=== PATIENT | female | born 1960 | race Caucasian/White ===

== ENCOUNTER 2017-05-10 20:24 | Emergency (ER) | payer OTHER ==
[~2017-05-10] VITALS: Ht 165.1 cm; Wt 136.0 kg
[~2017-05-10 20:24] MED LIST: BUPR150T3 PO; SYN
[2017-05-10 20:27] VITALS: BP 146/87; PULSE 88; RESP 16; TEMP 99.2; O2SAT 97
[2017-05-10] MEDS ORDERED: SODIUM CHLOR 0.9% 1000 ML INJ 1,000 ML IV SCH (21:12)
[2017-05-10] MEDS ORDERED: MORPHINE SULFATE 4 MG/ML INJ IV PUSH ONE (21:15)
[2017-05-10] MEDS ORDERED: ONDANSETRON HCL 4 MG/2 ML VIAL IVP ONE (21:15)
--- NOTE | 2017-05-10 21:15 | PD ---
HPI Chief Complaint: Abdominal Pain Time Seen by Provider: 21:05 Travel History International Travel<30 days: No Contact w/Intl Traveler<30days: No Traveled to known affect area: No History of Present Illness HPI 56-year-old female presents for evaluation of abdominal pain. Symptoms started yesterday. She describes it as a sharp pain in the left periumbilical/left lower quadrant of the abdomen which is the most part constant, worse with palpation and somewhat relieved when she is lying very still. She endorses some nausea. Denies vomiting, diarrhea or constipation, dysuria, hematuria, flank pain, fevers or chills, chest pain or shortness of breath. She has never had this sort of pain before. She reports a history of tubal ligation, denies any other abdominal surgeries. Denies history of diverticulosis. She has no other complaints at this time. PFSH Past Medical History Asthma: Yes Autoimmune Disease: Yes (THYROID) Depression: Yes Thyroid Disease: Yes Menopausal: No : 4 Para: 4 Miscarriage: 0 : 0 Tubal Ligation: Yes Past Surgical History Gynecologic Surgery: Yes (TUBAL LIGATION) Social History Alcohol Use: Yes (OCCASIONAL) Tobacco Use: No Substance Use: No Allergies-Medications (Allergen,Severity, Reaction): Coded Allergies: No Known Allergies (Verified , 05/10/17) Reported Meds & Prescriptions Reported Meds & Active Scripts Active Phenergan (Promethazine HCl) 25 Mg Tablet 25 Mg PO Q6H PRN Flagyl (Metronidazole) 500 Mg Tab 500 Mg PO TID 10 Days Cipro (Ciprofloxacin HCl) 500 Mg Tab 500 Mg PO BID 10 Days Review of Systems Except as stated in HPI: all other systems reviewed are Neg Physical Exam Narrative GENERAL: Well-developed well-nourished female in no acute distress SKIN: Warm and dry. HEAD: Atraumatic. Normocephalic. EYES: Pupils equal and round. No scleral icterus. No injection or drainage. ENT: No nasal bleeding or discharge. Mucous membranes pink and moist. NECK: Trachea midline. No JVD. CARDIOVASCULAR: Regular rate and rhythm. No murmur appreciated. RESPIRATORY: No accessory muscle use. Clear to auscultation. Breath sounds equal bilaterally. GASTROINTESTINAL: Abdomen soft, tender to palpation left periumbilical/left lower quadrant without guarding. There is no left upper quadrant or right upper quadrant tenderness. There is no right lower quadrant tenderness. There is no distention. MUSCULOSKELETAL: No obvious deformities. No edema. NEUROLOGICAL: Awake and alert. No obvious cranial nerve deficits. Motor grossly within normal limits. Normal speech. PSYCHIATRIC: Appropriate mood and affect; insight and judgment normal. Data Data Last Documented VS Vital Signs Date Time Temp Pulse Resp B/P Pulse Ox O2 Delivery O2 Flow Rate FiO2 05/10/17 20:27 99.2 88 16 146/87 97 Orders Complete Blood Count With Diff (05/10/17 21:12) Comprehensive Metabolic Panel (05/10/17 21:12) Lipase (05/10/17 21:12) Urinalysis - C+S If Indicated (05/10/17 21:12) Ct Abd/Pel W Iv Contrast(Rout) (05/10/17 21:12) Iv Access Insert/Monitor (05/10/17 21:12) Morphine Inj (Morphine Inj) (05/10/17 21:15) Ondansetron Inj (Zofran Inj) (05/10/17 21:15) Sodium Chlor 0.9% 1000 Ml Inj (Ns 1000 M (05/10/17 21:12) Iohexol 350 Inj (Omnipaque 350 Inj) (05/10/17 22:41) Diphenhydramine Inj (Benadryl Inj) (05/10/17 23:00) Methylprednisolone So Succ Inj (Solumedr (05/10/17 23:00) Ciprofloxacin 400 Mg Premix (Cipro 400 M (05/10/17 23:00) Metronidazole 500 Mg Inj (Flagyl 500 Mg (05/10/17 23:00) Labs Laboratory Tests Test 05/10/17 05/10/17 21:45 22:10 White Blood Count 11.4 TH/MM3 Red Blood Count 4.34 MIL/MM3 Hemoglobin 12.4 GM/DL Hematocrit 37.0 % Mean Corpuscular Volume 85.4 FL Mean Corpuscular Hemoglobin 28.5 PG Mean Corpuscular Hemoglobin 33.4 % Concent Red Cell Distribution Width 15.6 % Platelet Count 270 TH/MM3 Mean Platelet Volume 7.1 FL Neutrophils (%) (Auto) 58.2 % Lymphocytes (%) (Auto) 27.7 % Monocytes (%) (Auto) 10.7 % Eosinophils (%) (Auto) 2.9 % Basophils (%) (Auto) 0.5 % Neutrophils # (Auto) 6.6 TH/MM3 Lymphocytes # (Auto) 3.1 TH/MM3 Monocytes # (Auto) 1.2 TH/MM3 Eosinophils # (Auto) 0.3 TH/MM3 Basophils # (Auto) 0.1 TH/MM3 CBC Comment DIFF FINAL Differential Comment Sodium Level 138 MEQ/L Potassium Level 3.6 MEQ/L Chloride Level 102 MEQ/L Carbon Dioxide Level 26.7 MEQ/L Anion Gap 9 MEQ/L Blood Urea Nitrogen 13 MG/DL Creatinine 0.97 MG/DL Estimat Glomerular Filtration 60 ML/MIN Rate Random Glucose 87 MG/DL Calcium Level 8.5 MG/DL Total Bilirubin 0.4 MG/DL Aspartate Amino Transf 23 U/L (AST/SGOT) Alanine Aminotransferase 27 U/L (ALT/SGPT) Alkaline Phosphatase 91 U/L Total Protein 7.5 GM/DL Albumin 3.2 GM/DL Lipase 102 U/L Urine Color LIGHT-YELLOW Urine Turbidity CLEAR Urine pH 6.5 Urine Specific [place] 1.005 Urine Protein NEG mg/dL Urine Glucose (UA) NEG mg/dL Urine Ketones NEG mg/dL Urine Occult Blood SMALL Urine Nitrite NEG Urine Bilirubin NEG Urine Urobilinogen LESS THAN 2.0 MG/DL Urine Leukocyte Esterase NEG Urine RBC 1 /hpf Urine WBC LESS THAN 1 /hpf Urine Squamous Epithelial <1 /hpf Cells Urine Bacteria RARE /hpf Microscopic Urinalysis Comment CULT NOT INDICATED MDM Medical Decision Making Medical Screen Exam Complete: Yes Emergency Medical Condition: Yes Medical Record Reviewed: Yes Differential Diagnosis Diverticulitis, obstruction, pyelonephritis, mesenteric ischemia Narrative Course 56-year-old female here with 2 days of left-sided lower abdominal pain. Plan is for basic lab work, CT of the abdomen, she'll be given IV fluids, Zofran and morphine. Laboratory imaging studies have been reviewed. CT reveals uncomplicated diverticulitis. The patient will be treated with IV Cipro and Flagyl here, discharged with oral Cipro and Flagyl. Discussed signs and symptoms don't warrant return to the emergency room. Shortly after returning from CT the patient also itching in the axilla bilaterally, no rash. She was given some IV Benadryl and Solu-Medrol and monitored. Diagnosis Primary Impression: Diverticulitis Qualified Code: K57.32 - Diverticulitis of large intestine without perforation or abscess without bleeding Additional Instructions: Medication as prescribed. Follow-up with primary care physician in one week. Return for any new or worsening symptoms. Med/Other Pt SpecificInfo: Prescription(s) given Scripts Promethazine (Phenergan)25 Mg Dliesc73 Mg PO Q6H PRN (NAUSEA OR VOMITING) #20 TAB Ref 0 Prov:Areli Mejia MD 05/10/17 Metronidazole (Flagyl)500 Mg Uyp855 Mg PO TID 10 Days Ref 0 Prov:Areli Mejia MD 05/10/17 Ciprofloxacin (Cipro)500 Mg Tpd118 Mg PO BID 10 Days Ref 0 Prov:Areli Mejia MD 05/10/17 Disposition: 01 DISCHARGE HOME Condition: Stable Delroy Zuleta May 10, 2017 21:15
[2017-05-10 22:05] LABS: AUTOMATED NEUTROPHIL # 6.6 TH/MM3 (1.8-7.7); BASOPHIL # 0.1 TH/MM3 (0-0.2); BASOPHIL % 0.5 % (0.0-2.0); EOSINOPHIL # 0.3 TH/MM3 (0-0.4); EOSINOPHIL % 2.9 % (0.0-4.0); HEMO FLAGS DIFF FINAL; LYMPH % 27.7 % (9.0-44.0); LYMPHOCYTE # 3.1 TH/MM3 (1.0-4.8); MEAN CELL VOLUME 85.4 FL (80.0-100.0); MEAN CORPUSCULAR HEMOGLOBIN 28.5 PG (27.0-34.0); MEAN CORPUSCULAR HGB CONC 33.4 % (32.0-36.0); MONO % 10.7 % (0.0-8.0); NEUT % 58.2 % (16.0-70.0); PLATELET COUNT 270 TH/MM3 (150-450); RED BLOOD COUNT 4.34 MIL/MM3 (4.00-5.30); RED CELL DISTRIBUTION WIDTH 15.6 % (11.6-17.2); WHITE BLOOD COUNT 11.4 TH/MM3 (4.0-11.0)
[2017-05-10 22:20] LABS: ANION GAP 9 MEQ/L (5-15); AST (GOT) 23 U/L (15-37); BICARBONATE 26.7 MEQ/L (21.0-32.0); BLOOD UREA NITROGEN 13 MG/DL (7-18); CHLORIDE 102 MEQ/L (98-107); GLOMERULAR FILTRATION RATE 60 ML/MIN (>89); POTASSIUM 3.6 MEQ/L (3.5-5.1); SODIUM (NA) 138 MEQ/L (136-145)
[2017-05-10 22:21] LABS: ALT (GPT) 27 U/L (10-53)
[2017-05-10 22:23] LABS: ALKALINE PHOSPHATASE 91 U/L (45-117); TOTAL BILIRUBIN ADULT 0.4 MG/DL (0.2-1.0)
[2017-05-10 22:39] LABS: BACTERIA, URINE RARE /hpf; BLOOD, URINE SMALL (NEG); COMMENT (UR) CULT NOT INDICATED; CULTURE IF INDICATED CULT NOT INDICATED; GLUCOSE,URINE NEG (NEG); KETONE, URINE NEG (NEG); NITRITE,URINE NEG (NEG); PH, URINE 6.5 (5.0-8.5); SQUAMOUS EPITHELIAL CELL URINE <1 /hpf (0-5); URINE COLOR LIGHT-YELLOW (YELLW/STRAW)
[2017-05-10] MEDS ORDERED: IOHEXOL 350 MG/ML 10 ML VIAL (for RAD DIAG) IV ONE (22:41)
--- NOTE | 2017-05-10 22:56 | RADRPT ---
EXAM DATE/TIME: 05/10/2017 22:40 [facility] COMPARISON: No previous studies available for comparison. INDICATIONS : Periumbilical and left lower quadrant pain. IV CONTRAST: 95 cc Omnipaque 350 (iohexol) IV ORAL CONTRAST: No oral contrast ingested. RADIATION DOSE: 29.02 CTDIvol (mGy) ; Patient body habitus MEDICAL HISTORY : Thyroid disease. SURGICAL HISTORY : Tubal ligation. ENCOUNTER: Initial ACUITY: 1 day PAIN SCALE: 5/10 LOCATION: Left lower quadrant TECHNIQUE: Volumetric scanning of the abdomen and pelvis was performed. Using automated exposure control and ad justment of the mA and/or kV according to patient size, radiation dose was kept as low as reasonably achievable to obtain optimal diagnostic quality images. DICOM format image data is available electro nically for review and comparison. FINDINGS: There is a segment of mural thickening of the distal left colon with pericolonic inflammatory changes and multiple diverticula characteristic of diverticulitis. No abscess, obstruction, free fluid or fr ee air. Lung bases clear except for dependent atelectasis. No acute findings in the liver, spleen, adrenals, kidneys or pancreas. No calcified gallstones or biliary ductal dilatation. There is mild constipation . No acute bony abnormalities. CONCLUSION: 1. Acute diverticulitis of the distal left colon without abscess, obstruction, free fluid or free air . Mild constipation. Rene Frances MD on May 10, 2017 at 22:51 Board Certified Radiologist. This report was verified electronically.
[2017-05-10] MEDS ORDERED: diphenhydrAMINE HCL 50 MG/ML VIAL IV PUSH ONE (23:00)
[2017-05-10] MEDS ORDERED: metroNIDAZOLE 500 MG INJ 100 ML IV ONE (23:00)
[2017-05-10] MEDS ORDERED: METR-1 PO (23:00)
[2017-05-10] MEDS ORDERED: CIPR-9 PO (23:00)
[2017-05-10] MEDS ORDERED: CIPROFLOXACIN 400 MG PREMIX 200 ML IV ONE (23:00)
[2017-05-10] MEDS ORDERED: methylPREDNISolone SOD SUCC 125 MG/2 ML VIAL IV PUSH ONE (23:00)
[2017-05-10] MEDS ORDERED: PROM25TA10 PO (23:01)
== END 2017-05-11 01:43 | disposition home or self-care (01) ==
LOC: NEPD 20:24
DX: K57.32 Diverticulitis of large intestine without perforation or abscess without bleeding (principal); J45.909 Unspecified asthma, uncomplicated; E07.9 Disorder of thyroid, unspecified
CPT/HCPCS: 74177; 80053; 81001; 83690; 85025; 96374; 96375; 96376; 99285; J0744; J1200; J2270; J2405; J2930; J7030; Q9967

== ENCOUNTER 2018-01-20 19:12 | Emergency (ER) | payer OTHER ==
[~2018-01-20] VITALS: Ht 160 cm; Wt 136.0 kg
[~2018-01-20 19:12] MED LIST changes: -BUPR150T3 PO; +CIPR-9 PO; +METR-1 PO; +PROM25TA10 PO; -SYN
[2018-01-20 20:30] VITALS: BP 167/70; PULSE 98; RESP 20; TEMP 98.5; O2SAT 99
[2018-01-20 23:40] VITALS: BP 163/67; PULSE 100; RESP 22; TEMP 98.3; O2SAT 96
--- NOTE | 2018-01-21 00:28 | PD ---
HPI Chief Complaint: Edema Time Seen by Provider: 23:32 Travel History International Travel<30 days: No Contact w/Intl Traveler<30days: No Traveled to known affect area: No History of Present Illness HPI 57-year-old white female presents emergency department with complains of leg swelling. Right greater than left. She states that this is been present now for the past week. She does have a history of lower leg edema. She typically takes Lasix and potassium. She actually took an extra dose earlier this past week with some improvement of her swelling. She states that her legs still feel tight. More so on the right of by her knee. She has had some tingling and burning in her legs. She denies any trauma. No shortness of breath or wheezing. She denies any redness. She does not take control. She does not smoke. No sedentary activity. No history of clotting disorder. No family history of DVT. She does report extra activity earlier today. PFSH Past Medical History Narrative Medical Hypothyroidism, asthma, pedal edema Asthma: Yes Autoimmune Disease: Yes (THYROID) Depression: Yes Thyroid Disease: Yes (HYPO) ?: Not Menopausal: No : 4 Para: 4 Miscarriage: 0 : 0 Tubal Ligation: Yes Past Surgical History Gynecologic Surgery: Yes Social History Alcohol Use: No Tobacco Use: No Substance Use: No Allergies-Medications (Allergen,Severity, Reaction): Coded Allergies: No Known Allergies (Verified , 05/10/17) Reported Meds & Prescriptions Reported Meds & Active Scripts Active Phenergan (Promethazine HCl) 25 Mg Tablet 25 Mg PO Q6H PRN Flagyl (Metronidazole) 500 Mg Tab 500 Mg PO TID 10 Days Cipro (Ciprofloxacin HCl) 500 Mg Tab 500 Mg PO BID 10 Days Review of Systems General / Constitutional: No: Fever Eyes: No: Visual changes HENT: No: Headaches Cardiovascular: No: Chest Pain or Discomfort Respiratory: No: Shortness of Breath Gastrointestinal: No: Abdominal Pain Genitourinary: No: Dysuria Musculoskeletal: Positive: Edema, Pain (Tightness and tingling), No: Myalgias, Arthralgias, Limited ROM, Weakness Skin: No Rash Neurologic: No: Weakness Psychiatric: No: Depression Endocrine: No: Polydipsia Hematologic/Lymphatic: No: Easy Bruising Physical Exam Narrative GENERAL: Well-developed, well-nourished in no acute distress. Nontoxic appearing. HEAD: Normocephalic, atraumatic. EYES: Pupils equal round and reactive. Extraocular motions intact. No scleral icterus. No injection or drainage. ENT: TMs clear without erythema. The external auditory canals clear. Nose: clear . Posterior pharynx is pink and moist. No tonsillar edema or exudate. Uvula midline. Airway patent. NECK: Trachea midline.Supple, nontender, moves head freely. No central bony tenderness or spasm. CARDIOVASCULAR: Regular rate and rhythm without murmurs, gallops, or rubs. RESPIRATORY: Clear to auscultation. Breath sounds equal bilaterally. No wheezes , rales, or rhonchi. GASTROINTESTINAL: Abdomen soft, non-tender, nondistended. No hepato-splenomegaly , or palpable masses. No guarding. EXTREMITIES: No clubbing, cyanosis. Patient has +1 bilateral pedal edema. She has no cords. No Homans sign. No erythema or warmth. She has good distal pulses and sensation. She does complain some mild arthritic pain in her right knee with movement. I do not feel any obvious large Baumann's cyst. BACK: Nontender without deformity or crepitance. No flank tenderness. Data Data Last Documented VS Vital Signs Date Time Temp Pulse Resp B/P (MAP) Pulse Ox O2 Delivery O2 Flow Rate FiO2 01/20/18 23:40 98.3 100 22 163/67 (99) 96 Room Air Orders Orders Basic Metabolic Panel (Bmp) (01/20/18 23:36) D-Dimer (01/20/18 23:36) Ed Discharge Order (01/21/18 01:07) Labs Laboratory Tests Test 01/20/18 23:45 D-Dimer Quantitative (PE/DVT) 0.43 MG/L FEU Blood Urea Nitrogen 21 MG/DL Creatinine 0.99 MG/DL Random Glucose 113 MG/DL Calcium Level 9.0 MG/DL Sodium Level 141 MEQ/L Potassium Level 3.3 MEQ/L Chloride Level 103 MEQ/L Carbon Dioxide Level 27.8 MEQ/L Anion Gap 10 MEQ/L Estimat Glomerular Filtration Rate 58 ML/MIN MDM Medical Decision Making Medical Screen Exam Complete: Yes Emergency Medical Condition: Yes Medical Record Reviewed: Yes Interpretation(s) BMP Diagram 01/20/18 23:45 Calcium Level 9.0 Laboratory Tests Test 01/20/18 23:45 D-Dimer Quantitative (PE/DVT) 0.43 MG/L FEU Differential Diagnosis Differential diagnosis: DVT, pedal edema, Baumann's cyst, diabetic neuropathy, arthritis, lymphedema Narrative Course IV access is obtained. Patient's d-dimer is negative. This is pedal edema, osteoarthritis Diagnosis Primary Impression: Pedal edema Additional Impression: Osteoarthritis Patient Instructions: General Instructions Additional Instructions: Rest. Elevation. 3 Advil every 6 hours for the next 2 days. Double up on your Lasix for the next 2-3 days as well as taking double potassium. Follow-up with your doctor in next 3-5 days. Med/Other Pt SpecificInfo: No Meds Exist/No RX given Disposition: 01 DISCHARGE HOME Condition: Stable Rene Deleon Jan 21, 2018 00:28
[2018-01-21 00:58] LABS: BICARBONATE 27.8 MEQ/L (21.0-32.0); CREATININE 0.99 MG/DL (0.50-1.00)
== END 2018-01-21 01:43 | disposition home or self-care (01) ==
LOC: NEPD 19:12
DX: R60.0 Localized edema (principal); M19.90 Unspecified osteoarthritis, unspecified site
CPT/HCPCS: 80048; 85379; 99283

== ENCOUNTER 2018-08-05 04:30 | Inpatient (IN) ==
--- NOTE | 2018-08-05 04:51 | ED ---
HPI General Chief Complaint: Abdominal Pain Stated Complaint: Gi Time Seen by Provider: 08/05/18 04:40 Source: patient Mode of arrival: ambulatory Limitations: no limitations History of Present Illness HPI narrative: Primary CARE physician is Dr. nilton arce Patient states that she has no allergy to medications Patient states history of hypothyroid diverticulitis and a tubal ligation over 25 years ago. Patient complains of left upper left lower quadrant pain ongoing for the past 3 days, she states that she has not had a bowel movement in over a week. And since 12:00 today she started having episodes of vomiting. MD complaint: Reports abdominal pain Onset (ago): day(s) (3) Location: Reports L flank Severity: moderate Severity scale (1-10): 6 Quality: Reports sharp Radiation: Reports none Migration to: Reports no migration Relieving factors: nothing Exacerbating factors: nothing Associated symptoms: Reports nausea, vomiting and constipation Related Data Home Medications Medication Instructions Recorded Confirmed thyroid (pork) [[place] Thyroid] 180 mg PO DAILY 07/29/18 08/05/18 Allergies Allergy/AdvReac Type Severity Reaction Status Date / Time Iodinated Contrast- Oral and Allergy Itching Verified 08/05/18 04:35 IV Dye [Contrast] Review of Systems ROS: all other systems reviewed are negative PMFSH History History Provided By: Patient Medical History Medical History Diverticulitis (Acute) Hypothyroid (Acute) Obesity (Acute) Surgical History Surgical History H/O tubal ligation (Acute) Social History Social History Second Hand Smoke Exposure: No Smoking Status: Never smoker How Often Do You Have a Drink Containing Alcohol: Monthly or less Recent Travel in [facility] within the Last 8 Weeks: No Recent Out of Country Travel within the Last 8 Weeks: No Exam Narrative Exam Narrative: GENERAL: Obese female in mild distress secondary to pain SKIN: Focused skin assessment warm/dry. HEAD: Atraumatic. Normocephalic. EYES: Pupils equal and round. No scleral icterus. No injection or drainage. ENT: No nasal bleeding or discharge. Mucous membranes pink and moist. NECK: Trachea midline. No JVD. CARDIOVASCULAR: Regular rate and rhythm. No murmur appreciated. RESPIRATORY: No accessory muscle use. Clear to auscultation. Breath sounds equal bilaterally. GASTROINTESTINAL: Abdomen soft, tenderness to percussion over left upper and left lower quadrant, nondistended. MUSCULOSKELETAL: No obvious deformities. No clubbing. No cyanosis. No edema. NEUROLOGICAL: Awake and alert. No obvious cranial nerve deficits. Motor grossly within normal limits. Normal speech. PSYCHIATRIC: Appropriate mood and affect; insight and judgment normal. Course Initial Documented Vital Signs Temperature 97.3 F L 08/05/18 04:35 Pulse Rate 76 08/05/18 04:35 Respiratory Rate 16 08/05/18 04:35 Blood Pressure 124/58 L 08/05/18 04:35 Pulse Oximetry 97 08/05/18 04:35 Last Documented Vital Signs Temperature 97.3 F L 08/05/18 04:35 Pulse Rate 74 08/05/18 04:54 Respiratory Rate 22 08/05/18 04:54 Blood Pressure 131/74 08/05/18 04:54 Pulse Oximetry 99 08/05/18 04:54 Medical Decision Making MDM Narrative Medical decision making narrative: CT abdomen pelvis without contrast read by radiologist as persistent moderate severity diverticulitis of the proximal sigmoid colon with an associated partial obstruction has developed and there is a new long segment colitis as well especially in the transverse colon region. Mild leukocytosis of 12.7, no anemia normal platelet count no major shift Random glucose 165, hypokalemia 2.4 Normal kidney liver and pancreatic functions. Medical Screen Exam Complete: Yes Emergency Medical Condition: Yes Differential Diagnosis Differential Diagnosis: Colitis versus diverticulitis versus pyelonephritis versus ureterolithiasis Medical Records Medical records reviewed: Yes I reviewed the patient's medical records. Lab Data Lab results reviewed: Yes I reviewed the patient's lab results. Result diagrams: 08/05/18 05:00 08/05/18 05:00 Lab Results 08/05/18 08/05/18 Range/Units 05:00 05:00 WBC 12.7 H (4.0-11.0) th/mm3 RBC 4.59 (4.00-5.30) mil/mm3 Hgb 12.4 (11.6-15.3) gm/dL Hct 36.3 (35.0-46.0) % MCV 79.0 L (80.0-100.0) fL MCH 27.1 (27.0-34.0) pg MCHC 34.3 (32.0-36.0) % RDW 16.8 (11.6-17.2) % Plt Count 327 (150-450) th/mm3 MPV 7.5 (7.0-11.0) fL Neut % (Auto) 61.1 (16.0-70.0) % Lymph % (Auto) 29.5 (9.0-44.0) % [place] % (Auto) 7.6 (0.0-8.0) % Eos % (Auto) 1.5 (0.0-4.0) % Baso % (Auto) 0.3 (0.0-2.0) % Neut # (Auto) 7.8 H (1.8-7.7) th/mm3 Lymph # (Auto) 3.8 (1.0-4.8) th/mm3 [place] # (Auto) 1.0 H (0.0-0.9) th/mm3 Eos # (Auto) 0.2 (0.0-0.4) th/mm3 Baso # (Auto) 0.0 (0.0-0.2) th/mm3 WBC Differential . Differential Comment Auto diff final Sodium 138 (136-145) meq/L Potassium 2.4 L* (3.5-5.1) meq/L Chloride 96 L (98-107) meq/L Carbon Dioxide 30.4 (21.0-32.0) meq/L Anion Gap 12 (5-15) meq/L BUN 21 H (7-18) mg/dL Creatinine 0.95 (0.50-1.00) mg/dL Estimated GFR 61 L (>89) mL/min Random Glucose 165 H (74-106) mg/dL Calcium 9.1 (8.5-10.1) mg/dL Total Bilirubin 0.3 (0.2-1.0) mg/dL AST 23 (15-37) U/L ALT 28 (10-53) U/L Alkaline Phosphatase 77 (45-117) U/L Total Protein 7.5 D (6.4-8.2) g/dL Albumin 3.1 L (3.4-5.0) g/dL Lipase 101 (73-393) U/L Imaging Data Attestation: I personally reviewed and interpreted this imaging study as follows : Radiologist's impression: Abdomen/Pelvis CT 08/05/18 04:53 CONCLUSION: Persistent moderate severity diverticulitis of the proximal sigmoid colon. An associated partial obstruction has developed and there is new long segment colitis, especially in the transverse colon region. The new colitis is nonspecific, could be related to the partial obstruction/distention or infectious/opportunistic. No other complications have developed. Discharge Plan Discharge Disposition Patient Disposition: 30 Still Patient Discharge Condition Condition: Stable Discharge Details Diagnosis: Diverticulitis Physicians Team ED Provider: Cyrus Bingham Primary Care Provider: Nilton Arce Rxs /Orders / Referrals /Forms Prescriptions: No Action thyroid (pork) [[place] Thyroid] 180 mg Tablet 180 mg PO DAILY RF: 0 Status ED Status: With Doctor
[2018-08-05] MEDS ORDERED: Morphine Inj 4 MG/ML Vial IV.PUSH ONE (04:53)
[2018-08-05 05:06] LABS: Baso % (Auto) 0.3 % (0.0-2.0); Eos # (Auto) 0.2 th/mm3 (0.0-0.4); Eos % (Auto) 1.5 % (0.0-4.0); Hematocrit 36.3 % (35.0-46.0); Hemoglobin 12.4 gm/dL (11.6-15.3); Lymph # (Auto) 3.8 th/mm3 (1.0-4.8); Lymph % (Auto) 29.5 % (9.0-44.0); Mean Corpuscular HGB Conc 34.3 % (32.0-36.0); Mean Corpuscular Hemoglobin 27.1 pg (27.0-34.0); Mean Platelet Volume 7.5 fL (7.0-11.0); Mono % (Auto) 7.6 % (0.0-8.0); Neut # (Auto) 7.8 th/mm3 (1.8-7.7); Neut % (Auto) 61.1 % (16.0-70.0); Platelet Count 327 th/mm3 (150-450); Red Blood Count 4.59 mil/mm3 (4.00-5.30); Red Cell Distribution Width 16.8 % (11.6-17.2); White Blood Count 12.7 th/mm3 (4.0-11.0)
--- NOTE | 2018-08-05 05:26 | CT ---
EXAM DATE: 08/05/2018 5:17 AM EDT AGE/SEX: 58 years / Female INDICATIONS: Left lower quadrant pain. Constipation and vomiting for one week. CLINICAL DATA: This is the patient's initial encounter. Patient reports that signs and symptoms have been present for 1 week and indicates a pain score of 10/10. MEDICAL/SURGICAL HISTORY: Diverticulitis. Tubal ligation. RADIATION DOSE: 34.34 CTDI (mGy) ; Patient body habitus COMPARISON: [facility] [place], CT ABDOMEN & PELVIS W/O CONTRAST, 07/29/2018. . TECHNIQUE: Multiple contiguous axial images were obtained through the abdomen. Images were obtained using multiple row detector helical technique. Using automated exposure control and adjustment of the mA and/or kV according to patient size, radiation dose was kept as low as reasonably achievable to o btain optimal diagnostic quality images. DICOM format image data is available electronically for rev iew and comparison. FINDINGS: There is moderate severity acute diverticulitis of the proximal sigmoid colon. Wall thickening and co nsiderable stool seen upstream consistent with partial colonic obstruction. No small bowel distention . No abscess, perforation or free fluid. Noncontrast appearance of the liver, spleen, pancreas, adrenal glands and kidneys within normal limit s. Visualized lung bases are clear. No acute bony abnormality. CONCLUSION: Persistent moderate severity diverticulitis of the proximal sigmoid colon. An associated partial obstruction has developed and there is new long segment colitis, especially in the transverse colon region. The new colitis is nonspecific, could be related to the partial obstruction/distention or infectious/opportunistic. No other complications have developed. Electronically signed by: Piero Freedman MD 08/05/2018 5:25 AM EDT
[2018-08-05 05:42] LABS: Alanine Aminotransferase 28 U/L (10-53); Albumin 3.1 g/dL (3.4-5.0); Alkaline Phosphatase 77 U/L (45-117); Anion Gap 12 meq/L (5-15); Aspartate Aminotransferase 23 U/L (15-37); Blood Urea Nitrogen 21 mg/dL (7-18); Calcium 9.1 mg/dL (8.5-10.1); Carbon Dioxide 30.4 meq/L (21.0-32.0); Chloride 96 meq/L (98-107); Glomerular Filtration Rate 61 mL/min (>89); Glucose,Random 165 mg/dL (74-106); Lipase 101 U/L (73-393); Sodium 138 meq/L (136-145); Total Protein 7.5 g/dL (6.4-8.2)
[2018-08-05] MEDS ORDERED: Ketorolac Inj 30 MG/ML (IVP) Vial IV.PUSH ONE (05:43)
[2018-08-05 05:45] LABS: Potassium 2.4 meq/L (3.5-5.1)
[2018-08-05] MEDS ORDERED: Potassium Chlor 20 mEq Premix 20 MEQ/100 ML PIGGYBACK IV.SIG ONE (05:53)
[2018-08-05] MEDS ORDERED: Bisacodyl 10 MG Supp RECTAL PRN (06:43)
--- NOTE | 2018-08-05 09:15 | P.HPFP ---
History of Present Illness Primary Care Physician: Francisco Javier Castaneda DO History of Present Illness: Patient complains of left upper left lower quadrant pain ongoing for the past 3 days, she states that she has not had a bowel movement in over a week. And since 12:00 today she started having episodes of vomiting. She was recently was seen in office on 07/29/18 and GI consult was made, with worsening pain the next day she was She was treated in ER on 07/30/18 with Cipro and Flagyl. She continued to have more pain and present today to ER. - Diagnosis (1) Diverticulitis Inpatient Certification: I certify that the inpatient services were ordered in accordance with Medicare regulations governing the order. This includes certification that hospital inpatient services are reasonable and necessary and in the case of services not specified as inpatient-only under 42 CFR 419.22(n), that they are appropriately provided as inpatient services in accordance to with the 2-midnight benchmark under 43 CFR 412.3(e) Estimated Total Length of Stay (Days): 3 Plans for Post Hospital Care: [facility] - History History Provided By: Patient - Medical History Medical History: Medical History (Last Reviewed 08/05/18 @ 04:49 by Cyrus Bingham) Hypothyroid Diverticulitis Obesity - Surgical History Surgical History: Surgical History (Last Reviewed 08/05/18 @ 04:49 by Cyrus Bingham) H/O tubal ligation - Tobacco History Second Hand Smoke Exposure: No Smoking Status: Never smoker - Alcohol History How Often Do You Have a Drink Containing Alcohol: Monthly or less - Travel History Recent Travel in the [place] Within the Last 8 Weeks: No Recent Travel Out of the Country Within the Last 8 Weeks: No - Immunization History Tetanus Immunization: Unsure Medications and Allergies Active Medications: Active Medications Al Hydroxide/Mg Hydroxide (Milk Of Magnesia Liq) 30 ml PO Q12H PRN PRN Reason: Mild Constipation Bisacodyl (Dulcolax Supp) 10 mg RECTAL DAILY PRN PRN Reason: SEVERE CONSITIPATION Sodium Chloride (1/2 Normal Saline Inj) 1,000 mls @ 100 mls/hr IV.CONT .Q10H DOTTIE Lactulose (Lactulose Liq) 30 ml PO DAILY PRN PRN Reason: SEVERE CONSITIPATION Senna/Docusate Sodium (Jazmyn-Colace) 1 tab PO BID ODTTIE Sennosides (Senokot) 17.2 mg PO Q12H PRN PRN Reason: Moderate Constipation Sodium Chloride (Ns Flush) 2 ml IV.FLUSH PRN PRN PRN Reason: FLUSH AFTER USING IV ACCESS Allergies Allergy/AdvReac Type Severity Reaction Status Date / Time Iodinated Contrast- Oral and Allergy Itching Verified 08/05/18 04:35 IV Dye [Contrast] Home Medications Medication Instructions Recorded Confirmed Type thyroid (pork) [[place] Thyroid] 180 mg PO DAILY 07/29/18 08/05/18 History Exam Vital signs: Vital Signs 08/05/18 04:35 08/05/18 04:54 08/05/18 04:57 Temperature 97.3 F L Pulse Rate 76 74 Respiratory Rate 16 22 16 Blood Pressure 124/58 L 131/74 Pulse Oximetry 97 99 08/05/18 06:23 08/05/18 07:56 08/05/18 08:34 Temperature Pulse Rate 64 68 Respiratory Rate 16 18 18 Blood Pressure 103/52 L 118/55 L Pulse Oximetry 98 Intake & Output 08/04/18 08/05/18 08/05/18 18:59 06:59 18:59 Intake Total 100 / 100 200 / 200 Balance 100 / 100 200 / 200 Weight 127.006 kg Intake: IV 100 / 100 200 / 200 KCl 20 mEq Premix Inj 20 meq In 100 / 100 100 ml @ 50 mls/hr IV.SIG ONCE ONE Rx#:[id number] Rocephin Inj 2,000 MG In NS Inj 100 / 100 100 ML @ 200 mls/hr IV.SIG ONCE ONE Rx#:[id number] Flagyl 500 MG Inj 100 ML @ 100 100 / 100 mls/hr IV.SIG ONCE ONE Rx#: [id number] - Constitutional no acute distress - Routine HEENT Exam Eye: Present: PERRL ENT: Present: mucous membranes moist - Routine Respiratory Exam Present: CTA bilaterally - Routine Cardiovascular Exam Present: S1, S2 - Routine Abdominal Exam Present: tenderness, distended - Detailed Abdominal Exam Bowel sounds: hypoactive - Routine Skin Exam Present: dry, warm - Routine Neurological Exam Present: alert, oriented X3 Results - Labs Result diagrams: 08/05/18 05:00 08/05/18 05:00 Abnormal lab results 08/05/18 08/05/18 Range/Units 05:00 05:00 WBC 12.7 H (4.0-11.0) th/mm3 MCV 79.0 L (80.0-100.0) fL Neut # (Auto) 7.8 H (1.8-7.7) th/mm3 [place] # (Auto) 1.0 H (0.0-0.9) th/mm3 Potassium 2.4 L* (3.5-5.1) meq/L Chloride 96 L (98-107) meq/L BUN 21 H (7-18) mg/dL Estimated GFR 61 L (>89) mL/min Random Glucose 165 H (74-106) mg/dL Albumin 3.1 L (3.4-5.0) g/dL Short CBC 08/05/18 Range/Units 05:00 WBC 12.7 H (4.0-11.0) th/mm3 Hgb 12.4 (11.6-15.3) gm/dL Hct 36.3 (35.0-46.0) % Plt Count 327 (150-450) th/mm3 BMP 08/05/18 05:00 Sodium 138 Potassium 2.4 L* Chloride 96 L Carbon Dioxide 30.4 BUN 21 H Creatinine 0.95 Calcium 9.1 Liver Function 08/05/18 Range/Units 05:00 Total Bilirubin 0.3 (0.2-1.0) mg/dL AST 23 (15-37) U/L ALT 28 (10-53) U/L Alkaline Phosphatase 77 (45-117) U/L Albumin 3.1 L (3.4-5.0) g/dL - Imaging Impressions Abdomen/Pelvis CT 08/05/18 04:53 CONCLUSION: Persistent moderate severity diverticulitis of the proximal sigmoid colon. An associated partial obstruction has developed and there is new long segment colitis, especially in the transverse colon region. The new colitis is nonspecific, could be related to the partial obstruction/distention or infectious/opportunistic. No other complications have developed. Caprini VTE Risk Assessment Caprini VTE Risk Assessment: No/Low Risk (score <= 1) Caprini Risk Assessment Model: Point Value = 1 Point Value = 2 Point Value = 3 Point Value = 5 Age 41-60 Minor surgery BMI > 25 kg/m2 Swollen legs Varicose veins or History of unexplained or recurrent spontaneous Oral contraceptives or hormone replacement Sepsis (< 1 month) Serious lung disease, including pneumonia (< 1 month) Abnormal pulmonary function Acute myocardial infarction Congestive heart failure (< 1 month) History of inflammatory bowel disease Medical patient at bed rest Age 61-74 Arthroscopic surgery Major open surgery (> 45 min) Laparoscopic surgery (> 45 min) Malignancy Confined to bed (> 72 hours) Immobilizing plaster cast Central venous access Age >= 75 History of VTE Family history of VTE Factor V Leiden Prothrombin [id number] Lupus anticoagulant Anticardiolipin antibodies Elevated serum homocysteine Heparin-induced thrombocytopenia Other congenital or acquired thrombophilia Stroke (< 1 month) Elective arthroplasty Hip, pelvis, or leg fracture Acute spinal cord injury (< 1 month) Prophylaxis Regimen: Total Risk Factor Score Risk Level Prophylaxis Regimen 0-1 Low Early ambulation 2 Moderate Order ONE of the following: *Sequential Compression Device (SCD) *Heparin 5000 units SQ BID 3-4 Higher Order ONE of the following medications: *Heparin 5000 units SQ TID *Enoxaparin/Lovenox 40 mg SQ daily (WT < 150 kg, CrCl > 30 mL/min) *Enoxaparin/Lovenox 30 mg SQ daily (WT < 150 kg, CrCl > 10-29 mL/min) *Enoxaparin/Lovenox 30 mg SQ BID (WT < 150 kg, CrCl > 30 mL/min) AND/OR *Sequential Compression Device (SCD) 5 or more Highest Order ONE of the following medications: *Heparin 5000 units SQ TID (Preferred with Epidurals) *Enoxaparin/Lovenox 40 mg SQ daily (WT < 150 kg, CrCl > 30 mL/min) *Enoxaparin/Lovenox 30 mg SQ daily (WT < 150 kg, CrCl > 10-29 mL/min) *Enoxaparin/Lovenox 30 mg SQ BID (WT < 150 kg, CrCl > 30 mL/min) AND *Sequential Compression Device (SCD) Assessment and Plan - Assessment (1) Diverticulitis Code(s): K57.92 - Diverticulitis of intestine, part unspecified, without perforation or abscess without bleeding Status: Acute Plan: NPO, Will start IVF, GI consulted Pain controlled
[2018-08-05] MEDS: Sodium Chloride 0.45 % Inj 1,000 ML IV.CONT SCH ×2 (09:52→22:01)
[2018-08-05] MEDS: Senna/Docusate Sodium 8.6/50 MG Tablet PO SCH ×2 (09:52→22:01)
[2018-08-05] MEDS: Morphine Inj 4 MG/ML Vial IV.PUSH PRN ×2 (10:48→22:06)
--- NOTE | 2018-08-05 11:02 | P.CONGI ---
History of Present Illness Consult date: 08/05/18 Consult reason: Diverticulitis/partial obstruction Chief complaint: Diverticulitis with Partial Obstruction History of Present Illness: This patient is a 58-year-old female with history of diverticulitis and tubal ligation. Patient presented to the emergency room at [facility] on 08/05/2018 with complaint of left lower quadrant abdominal pain onset 3 days. Patient reported she had not had a bowel movement in over 1 week. She reported associated nausea with vomiting. The patient describes left lower quadrant pain as a cramping pain that is intermittent. She states this pain does not radiate, and she rates it at 3/out of 10 at this time. Upon consultation, patient describes left lower quadrant cramping pain times 1 week. She reports no bowel movement for 1 week. States small amounts of brown stool intermittently. Patient states she took [id number] laxative without effect. She states it only increased the cramping but did not result in a bowel movement. Patient denies history of ever having an EGD, but does state that she had a colonoscopy "many years ago". She states to her recollection there were no polyps found, only hemorrhoids. Patient denies any noted bleeding. Denies fever or chills. Patient reporting continued nausea over 1 week but states that vomiting began after she took laxative. Denies difficulty swallowing, painful swallowing or heartburn. She denies tobacco use, and states alcohol use "less than socially" . Denies use of NSAIDs or aspirin. Patient endorses family history including paternal grandmother-diverticulitis, maternal grandmother-pancreatic cancer. Our service has been consulted to evaluate patient's diverticulitis and partial obstruction. Review of Systems All other systems reviewed negative except as stated in [facility] - History History Provided By: Patient - Medical History Medical History: Medical History (Last Reviewed 08/05/18 @ 04:49 by Cyrus Bingham) Hypothyroid Diverticulitis Obesity - Surgical History Surgical History: Surgical History (Last Reviewed 08/05/18 @ 04:49 by Cyrus Bingham) H/O tubal ligation - Tobacco History Second Hand Smoke Exposure: No Smoking Status: Never smoker - Alcohol History How Often Do You Have a Drink Containing Alcohol: Monthly or less - Travel History Recent Travel in the [place] Within the Last 8 Weeks: No Recent Travel Out of the Country Within the Last 8 Weeks: No - Immunization History Tetanus Immunization: Unsure Medications and Allergies Active Medications: Active Medications Al Hydroxide/Mg Hydroxide (Milk Of Magnesia Liq) 30 ml PO Q12H PRN PRN Reason: Mild Constipation Bisacodyl (Dulcolax Supp) 10 mg RECTAL DAILY PRN PRN Reason: SEVERE CONSITIPATION Sodium Chloride (1/2 Normal Saline Inj) 1,000 mls @ 100 mls/hr IV.CONT .Q10H [facility] Last Admin: 08/05/18 09:52 Dose: 100 mls/hr Ciprofloxacin/Dextrose (Cipro 400 Mg/200 Ml Inj) 400 mg in 200 mls @ 200 mls/ hr IV.SIG Q12H DOTTIE Metronidazole/Sodium Chloride (Flagyl 500 Mg Inj) 100 mls @ 100 mls/hr IV.SIG Q8H DOTTIE Lactulose (Lactulose Liq) 30 ml PO DAILY PRN PRN Reason: SEVERE CONSITIPATION Morphine Sulfate (Morphine Inj) 2 mg IV.PUSH Q4H PRN PRN Reason: ABDOMINAL PAIN Senna/Docusate Sodium (Jazmyn-Colace) 1 tab PO BID [facility] Last Admin: 08/05/18 09:52 Dose: Not Given Sennosides (Senokot) 17.2 mg PO Q12H PRN PRN Reason: Moderate Constipation Sodium Chloride (Ns Flush) 2 ml IV.FLUSH PRN PRN PRN Reason: FLUSH AFTER USING IV ACCESS Thyroid ([place] Thyroid) 180 mg PO DAILY@0600 [facility] Allergies Allergy/AdvReac Type Severity Reaction Status Date / Time Iodinated Contrast- Oral and Allergy Itching Verified 08/05/18 04:35 IV Dye [Contrast] Home Medications Medication Instructions Recorded Confirmed Type thyroid (pork) [[place] Thyroid] 180 mg PO DAILY 07/29/18 08/05/18 History Exam Vital signs: Vital Signs 08/05/18 04:35 08/05/18 04:54 08/05/18 04:57 Temperature 97.3 F L Pulse Rate 76 74 Respiratory Rate 16 22 16 Blood Pressure 124/58 L 131/74 Pulse Oximetry 97 99 08/05/18 06:23 08/05/18 07:56 08/05/18 08:34 Temperature Pulse Rate 64 68 Respiratory Rate 16 18 18 Blood Pressure 103/52 L 118/55 L Pulse Oximetry 98 Intake & Output 08/04/18 08/05/18 08/05/18 18:59 06:59 18:59 Intake Total 100 / 100 200 / 200 Balance 100 / 100 200 / 200 Weight 127.006 kg Intake: IV 100 / 100 200 / 200 KCl 20 mEq Premix Inj 20 meq In 100 / 100 100 ml @ 50 mls/hr IV.SIG ONCE ONE Rx#:[id number] Rocephin Inj 2,000 MG In NS Inj 100 / 100 100 ML @ 200 mls/hr IV.SIG ONCE ONE Rx#:[id number] Flagyl 500 MG Inj 100 ML @ 100 100 / 100 mls/hr IV.SIG ONCE ONE Rx#: [id number] - Constitutional mild distress Comments: Rates abdominal pain anywhere from 3-7 during examination - Routine HEENT Exam Head: Present: normocephalic - Routine Respiratory Exam Present: CTA bilaterally. Absent: accessory muscle use - Routine Cardiovascular Exam Present: RRR - Routine Abdominal Exam Present: soft, normoactive bowel sounds. Absent: tenderness, distended, guarding, firm - Routine Extremities Exam Present: full ROM, pulses intact. Absent: edema - Routine Skin Exam Present: dry, warm - Routine Neurological Exam Present: alert Results - Labs CBC & Chem 7: 08/05/18 05:00 08/05/18 05:00 Labs: Laboratory Results - last 24 hr 08/05/18 08/05/18 05:00 05:00 WBC 12.7 H RBC 4.59 Hgb 12.4 Hct 36.3 MCV 79.0 L MCH 27.1 MCHC 34.3 RDW 16.8 Plt Count 327 MPV 7.5 Neut % (Auto) 61.1 Lymph % (Auto) 29.5 [place] % (Auto) 7.6 Eos % (Auto) 1.5 Baso % (Auto) 0.3 Neut # (Auto) 7.8 H Lymph # (Auto) 3.8 [place] # (Auto) 1.0 H Eos # (Auto) 0.2 Baso # (Auto) 0.0 WBC Differential . Differential Comment Auto diff final Sodium 138 Potassium 2.4 L* Chloride 96 L Carbon Dioxide 30.4 Anion Gap 12 BUN 21 H Creatinine 0.95 Estimated GFR 61 L Random Glucose 165 H Calcium 9.1 Total Bilirubin 0.3 AST 23 ALT 28 Alkaline Phosphatase 77 Total Protein 7.5 D Albumin 3.1 L Lipase 101 - Imaging Impressions Abdomen/Pelvis CT 08/05/18 04:53 CONCLUSION: Persistent moderate severity diverticulitis of the proximal sigmoid colon. An associated partial obstruction has developed and there is new long segment colitis, especially in the transverse colon region. The new colitis is nonspecific, could be related to the partial obstruction/distention or infectious/opportunistic. No other complications have developed. Assessment and Plan (1) Diverticulitis Status: Acute Code(s): K57.92 - Diverticulitis of intestine, part unspecified , without perforation or abscess without bleeding - Plan This patient is a 58-year-old female with history of diverticulitis and tubal ligation. Patient presented to the emergency room at [facility] on 08/05/2018 with complaint of left lower quadrant abdominal pain onset 3 days. Patient reported she had not had a bowel movement in over 1 week. She reported associated nausea with vomiting. The patient describes left lower quadrant pain as a cramping pain that is intermittent. She states this pain does not radiate, and she rates it at 3/out of 10 at this time. Upon consultation, patient describes left lower quadrant cramping pain times 1 week. She reports no bowel movement for 1 week. States small amounts of brown stool intermittently. Patient states she took [id number] laxative without effect. She states it only increased the cramping but did not result in a bowel movement. Patient denies history of ever having an EGD, but does state that she had a colonoscopy "many years ago". She states to her recollection there were no polyps found, only hemorrhoids. Patient denies any noted bleeding. Denies fever or chills. Patient reporting continued nausea over 1 week but states that vomiting began after she took laxative. Denies difficulty swallowing, painful swallowing or heartburn. She denies tobacco use, and states alcohol use "less than socially" . Denies use of NSAIDs or aspirin. Patient endorses family history including paternal grandmother-diverticulitis, maternal grandmother-pancreatic cancer. Our service has been consulted to evaluate patient's diverticulitis and partial obstruction. Diverticulitis 08/05/2018 CT abdomen and pelvis revealed the following findings: Persistent moderate severity diverticulitis of the proximal sigmoid colon. An associated partial obstruction has developed and there is new long segment colitis, especially in the transverse colon region. The new colitis is nonspecific, could be related to the partial obstruction/distention or infectious/ opportunistic. No other complications have developed. WBC 12.7 hemoglobin 12.4 hematocrit 36.3 total bilirubin 0.3 AST 23 ALT 28 alk phos 77 lipase 101 Plan -N.p.o. -Flagyl/Cipro IV -Analgesic as per attending -Monitor labs -Bowel regimen -Continue IV hydration -Supportive care Further recommendations to follow based on patient status and findings This patient has been seen by myself and Dr. Lyons and this note is written on his behalf - Attending Attestation Dr. Lyons
[2018-08-05] MEDS: Ciprofloxacin 400 MG/200 ML 400 MG/200 ML PIGGYBACK IV.SIG SCH ×2 (11:44→22:01)
[2018-08-06] MEDS: Thyroid 60 MG Tablet PO SCH (05:00)
[2018-08-06] MEDS: Morphine Inj 4 MG/ML Vial IV.PUSH PRN ×4 (05:04→20:55)
[2018-08-06] MEDS: Sodium Chloride 0.45 % Inj 1,000 ML IV.CONT SCH ×3 (05:08→15:25)
[2018-08-06] MEDS: Senna/Docusate Sodium 8.6/50 MG Tablet PO SCH ×2 (08:38→20:55)
[2018-08-06] MEDS: Ciprofloxacin 400 MG/200 ML 400 MG/200 ML PIGGYBACK IV.SIG SCH ×2 (08:38→20:56)
[2018-08-06 08:57] LABS: Baso % (Auto) 0.1 % (0.0-2.0); Hematocrit 35.5 % (35.0-46.0); Hemoglobin 12.3 gm/dL (11.6-15.3); Lymph # (Auto) 1.3 th/mm3 (1.0-4.8); Lymph % (Auto) 4.7 % (9.0-44.0); Mean Corpuscular HGB Conc 34.5 % (32.0-36.0); Mean Corpuscular Hemoglobin 27.6 pg (27.0-34.0); Mean Corpuscular Volume 79.9 fL (80.0-100.0); Mean Platelet Volume 7.5 fL (7.0-11.0); Mono # (Auto) 2.8 th/mm3 (0.0-0.9); Mono % (Auto) 9.8 % (0.0-8.0); Neut # (Auto) 24.1 th/mm3 (1.8-7.7); Neut % (Auto) 85.4 % (16.0-70.0); Platelet Count 318 th/mm3 (150-450); Red Blood Count 4.45 mil/mm3 (4.00-5.30); Red Cell Distribution Width 17.1 % (11.6-17.2); White Blood Count 28.3 th/mm3 (4.0-11.0)
[2018-08-06 09:33] LABS: Alanine Aminotransferase 19 U/L (10-53); Albumin 2.4 g/dL (3.4-5.0); Alkaline Phosphatase 65 U/L (45-117); Anion Gap 9 meq/L (5-15); Aspartate Aminotransferase 12 U/L (15-37); Blood Urea Nitrogen 20 mg/dL (7-18); Calcium 8.2 mg/dL (8.5-10.1); Carbon Dioxide 32.7 meq/L (21.0-32.0); Chloride 94 meq/L (98-107); Glomerular Filtration Rate 61 mL/min (>89); Glucose,Random 149 mg/dL (74-106); Sodium 136 meq/L (136-145); Total Protein 6.5 g/dL (6.4-8.2)
[2018-08-06 09:37] LABS: Potassium 2.4 meq/L (3.5-5.1)
[2018-08-06 09:48] LABS: Lymphocytes 5 % (9-44); Monocytes 5 % (0-8); Myelocytes 1 % (0-0)
[2018-08-06 09:49] LABS: Platelet Estimate Normal (Normal); Platelet Morphology Normal (Normal); RBC Morphology Normal (Normal)
[2018-08-06] MEDS ORDERED: Acetaminophen 325 MG Tablet PO PRN (11:33)
[2018-08-06] MEDS: Potassium Chlor 20 mEq Premix 20 MEQ/100 ML PIGGYBACK IV.SIG SCH ×2 (12:31→16:35)
--- NOTE | 2018-08-06 15:36 | P.PNFP ---
Subjective Interval history: Delayed entry seen this am Complains of abdominal discomfort No BM Results - Labs Result diagrams: 08/06/18 08:32 08/06/18 08:32 Abnormal lab results 08/06/18 08/06/18 Range/Units 08:32 08:32 WBC 28.3 H (4.0-11.0) th/mm3 MCV 79.9 L (80.0-100.0) fL Neut % (Auto) 85.4 H (16.0-70.0) % Lymph % (Auto) 4.7 L (9.0-44.0) % [place] % (Auto) 9.8 H (0.0-8.0) % Neut # (Auto) 24.1 H (1.8-7.7) th/mm3 [place] # (Auto) 2.8 H (0.0-0.9) th/mm3 Seg Neuts % (Manual) 77 H (16-70) % Band Neuts % (Manual) 12 H (0-6) % Lymphocytes % (Manual) 5 L (9-44) % Myelocytes % (Man) 1 H (0-0) % Abs Neuts (Manual) 25.5 H (1.8-7.7) th/mm3 Potassium 2.4 L* (3.5-5.1) meq/L Chloride 94 L (98-107) meq/L Carbon Dioxide 32.7 H (21.0-32.0) meq/L BUN 20 H (7-18) mg/dL Estimated GFR 61 L (>89) mL/min Random Glucose 149 H (74-106) mg/dL Calcium 8.2 L D (8.5-10.1) mg/dL AST 12 L (15-37) U/L Albumin 2.4 L D (3.4-5.0) g/dL Short CBC 08/06/18 Range/Units 08:32 WBC 28.3 H (4.0-11.0) th/mm3 Hgb 12.3 (11.6-15.3) gm/dL Hct 35.5 (35.0-46.0) % Plt Count 318 (150-450) th/mm3 BMP 08/06/18 08:32 Sodium 136 Potassium 2.4 L* Chloride 94 L Carbon Dioxide 32.7 H BUN 20 H Creatinine 0.95 Calcium 8.2 L D Liver Function 08/06/18 Range/Units 08:32 Total Bilirubin 0.6 (0.2-1.0) mg/dL AST 12 L (15-37) U/L ALT 19 (10-53) U/L Alkaline Phosphatase 65 (45-117) U/L Albumin 2.4 L D (3.4-5.0) g/dL Physical Exam Vital signs: Vital Signs 08/05/18 20:00 08/06/18 00:00 08/06/18 04:00 Temperature 99.1 F 97.5 F L 99.3 F Pulse Rate 93 H 83 87 Respiratory Rate 18 18 17 Blood Pressure 118/56 L 128/59 L 139/69 Pulse Oximetry 96 96 94 L 08/06/18 08:00 08/06/18 12:00 Temperature 100.1 F H 99.3 F Pulse Rate 91 H 86 Respiratory Rate 18 18 Blood Pressure 145/64 H 151/68 H Pulse Oximetry 96 99 Intake & Output 08/05/18 08/06/18 08/06/18 18:59 06:59 18:59 Intake Total 500 / 500 2400 / 2400 1300 / 1300 Balance 500 / 500 2400 / 2400 1300 / 1300 Weight 132.7 kg Intake: IV 500 / 500 2400 / 2400 1300 / 1300 1/2 Normal Saline Inj 1,000 ML 2000 / 2000 1000 / 1000 @ 100 mls/hr IV.CONT .Q10H DOTTIE Rx#:[id number] Cipro 400 MG/200 ML Inj 400 mg 200 / 200 200 / 200 200 / 200 In 200 ml @ 200 mls/hr IV.SIG Q12HR DOTTIE Rx#:[id number] KCl 20 mEq Premix Inj 20 meq In 100 / 100 100 / 100 100 ml @ 50 mls/hr IV.SIG Q2H DOTTIE Rx#:[id number] Flagyl 500 MG Inj 100 ML @ 100 200 / 200 200 / 200 mls/hr IV.SIG Q8H DOTTIE Rx#: [id number] Other: # Voids 3 Weight On Admission 132.7 kg - Constitutional no acute distress - Routine HEENT Exam Eye: Present: PERRL ENT: Present: mucous membranes moist - Routine Neck Exam Present: supple - Routine Respiratory Exam Present: CTA bilaterally - Routine Cardiovascular Exam Present: S1, S2 - Routine Abdominal Exam Present: tenderness - Detailed Abdominal Exam Bowel sounds: hypoactive - Routine Extremities Exam Present: pulses intact - Routine Skin Exam Present: dry, warm - Routine Neurological Exam Present: alert, oriented X3 - Routine Psychiatric Exam Present: cooperative Assessment and Plan - Assessment (1) Diverticulitis Code(s): K57.92 - Diverticulitis of intestine, part unspecified, without perforation or abscess without bleeding Status: Acute Plan: NPO, Will start IVF, GI consulted Pain controlled (2) Hypokalemia Code(s): E87.6 - Hypokalemia Status: Acute Plan: Potassium will replace, lab in am - Assessment and Plan 08/06/18- Complains of abdominal tenderness, she has not had BM, she did have fever thia am. She is on Cipro, flagyl Iv. Potassium 2.4 40 meq IV given will get labs in am.
--- NOTE | 2018-08-06 16:00 | P.PNGI ---
Subjective Interval history: Patient resting in bed Reporting occasional nausea without vomiting Reporting urinary frequency <Luna,Dinah - Last Filed: 08/06/18 16:01> Physical Exam Vital signs: Vital Signs 08/05/18 20:00 08/06/18 00:00 08/06/18 04:00 Temperature 99.1 F 97.5 F L 99.3 F Pulse Rate 93 H 83 87 Respiratory Rate 18 18 17 Blood Pressure 118/56 L 128/59 L 139/69 Pulse Oximetry 96 96 94 L 08/06/18 08:00 08/06/18 12:00 Temperature 100.1 F H 99.3 F Pulse Rate 91 H 86 Respiratory Rate 18 18 Blood Pressure 145/64 H 151/68 H Pulse Oximetry 96 99 Intake & Output 08/05/18 08/06/18 08/06/18 18:59 06:59 18:59 Intake Total 500 / 500 2400 / 2400 1300 / 1300 Balance 500 / 500 2400 / 2400 1300 / 1300 Weight 132.7 kg Intake: IV 500 / 500 2400 / 2400 1300 / 1300 1/2 Normal Saline Inj 1,000 ML 2000 / 2000 1000 / 1000 @ 100 mls/hr IV.CONT .Q10H DOTTIE Rx#:[id number] Cipro 400 MG/200 ML Inj 400 mg 200 / 200 200 / 200 200 / 200 In 200 ml @ 200 mls/hr IV.SIG Q12HR DOTTIE Rx#:[id number] KCl 20 mEq Premix Inj 20 meq In 100 / 100 100 / 100 100 ml @ 50 mls/hr IV.SIG Q2H DOTTIE Rx#:[id number] Flagyl 500 MG Inj 100 ML @ 100 200 / 200 200 / 200 mls/hr IV.SIG Q8H DOTTIE Rx#: [id number] Other: # Voids 3 Weight On Admission 132.7 kg - Constitutional no acute distress - Routine HEENT Exam Head: Present: normocephalic - Routine Respiratory Exam Present: CTA bilaterally. Absent: accessory muscle use - Routine Abdominal Exam Present: soft. Absent: normoactive bowel sounds, guarding, firm - Routine Extremities Exam Absent: edema - Routine Skin Exam Present: dry, warm - Routine Neurological Exam Present: alert, oriented X3 - Routine Psychiatric Exam Present: normal affect, cooperative <LunaDinah - Last Filed: 08/06/18 16:01> Vital signs: Vital Signs 08/05/18 20:00 08/06/18 00:00 08/06/18 04:00 Temperature 99.1 F 97.5 F L 99.3 F Pulse Rate 93 H 83 87 Respiratory Rate 18 18 17 Blood Pressure 118/56 L 128/59 L 139/69 Pulse Oximetry 96 96 94 L 08/06/18 08:00 08/06/18 12:00 08/06/18 16:00 Temperature 100.1 F H 99.3 F 99.2 F Pulse Rate 91 H 86 90 Respiratory Rate 18 18 18 Blood Pressure 145/64 H 151/68 H 126/58 L Pulse Oximetry 96 99 97 Intake & Output 08/06/18 08/06/18 08/07/18 06:59 18:59 06:59 Intake Total 2400 / 2400 1400 / 1400 Output Total 600 / 600 Balance 2400 / 2400 800 / 800 Weight 132.7 kg Intake: IV 2400 / 2400 1400 / 1400 1/2 Normal Saline Inj 1,000 ML 2000 / 2000 1000 / 1000 @ 100 mls/hr IV.CONT .Q10H DOTTIE Rx#:[id number] Cipro 400 MG/200 ML Inj 400 mg 200 / 200 200 / 200 In 200 ml @ 200 mls/hr IV.SIG Q12HR DOTTIE Rx#:[id number] KCl 20 mEq Premix Inj 20 meq In 100 / 100 100 ml @ 50 mls/hr IV.SIG Q2H DOTTIE Rx#:[id number] Flagyl 500 MG Inj 100 ML @ 100 200 / 200 100 / 100 mls/hr IV.SIG Q8H DOTTIE Rx#: [id number] Oral 0 / 0 Output: Urine 600 / 600 Other: # Voids 3 # Bowel Movements 0 Weight On Admission 132.7 kg <Mc Talbert - Last Filed: 08/06/18 19:14> Results - Labs CBC & Chem 7: 08/06/18 08:32 08/06/18 08:32 Laboratory Results - last 24 hr 08/06/18 08/06/18 08:32 08:32 WBC 28.3 H RBC 4.45 Hgb 12.3 Hct 35.5 MCV 79.9 L MCH 27.6 MCHC 34.5 RDW 17.1 Plt Count 318 MPV 7.5 Prelim Diff (Auto) Slide review pending Neut % (Auto) 85.4 H Lymph % (Auto) 4.7 L [place] % (Auto) 9.8 H Eos % (Auto) 0.0 Baso % (Auto) 0.1 Neut # (Auto) 24.1 H Lymph # (Auto) 1.3 [place] # (Auto) 2.8 H Eos # (Auto) 0.0 Baso # (Auto) 0.0 WBC Differential Manual diff final Seg Neuts % (Manual) 77 H Band Neuts % (Manual) 12 H Lymphocytes % (Manual) 5 L Monocytes % (Manual) 5 Myelocytes % (Man) 1 H Abs Neuts (Manual) 25.5 H Differential Comment . Platelet Estimate Normal Platelet Morphology Normal RBC Morphology Normal Sodium 136 Potassium 2.4 L* Chloride 94 L Carbon Dioxide 32.7 H Anion Gap 9 BUN 20 H Creatinine 0.95 Estimated GFR 61 L Random Glucose 149 H Calcium 8.2 L D Total Bilirubin 0.6 AST 12 L ALT 19 Alkaline Phosphatase 65 Total Protein 6.5 D Albumin 2.4 L D <Dinah Luna - Last Filed: 08/06/18 16:01> - Labs CBC & Chem 7: 08/06/18 08:32 08/06/18 08:32 Laboratory Results - last 24 hr 08/06/18 08/06/18 08/06/18 08:32 08:32 15:35 WBC 28.3 H RBC 4.45 Hgb 12.3 Hct 35.5 MCV 79.9 L MCH 27.6 MCHC 34.5 RDW 17.1 Plt Count 318 MPV 7.5 Prelim Diff (Auto) Slide review pending Neut % (Auto) 85.4 H Lymph % (Auto) 4.7 L [place] % (Auto) 9.8 H Eos % (Auto) 0.0 Baso % (Auto) 0.1 Neut # (Auto) 24.1 H Lymph # (Auto) 1.3 [place] # (Auto) 2.8 H Eos # (Auto) 0.0 Baso # (Auto) 0.0 WBC Differential Manual diff final Seg Neuts % (Manual) 77 H Band Neuts % (Manual) 12 H Lymphocytes % (Manual) 5 L Monocytes % (Manual) 5 Myelocytes % (Man) 1 H Abs Neuts (Manual) 25.5 H Differential Comment . Platelet Estimate Normal Platelet Morphology Normal RBC Morphology Normal Sodium 136 Potassium 2.4 L* Chloride 94 L Carbon Dioxide 32.7 H Anion Gap 9 BUN 20 H Creatinine 0.95 Estimated GFR 61 L Random Glucose 149 H Calcium 8.2 L D Total Bilirubin 0.6 AST 12 L ALT 19 Alkaline Phosphatase 65 Total Protein 6.5 D Albumin 2.4 L D Urine Color Ramonita Urine Clarity Hazy H Urine pH 5.0 Ur Specific [place] 1.026 Urine Protein 30 H Urine Glucose (UA) Negative Urine Ketones Negative Urine Occult Blood Moderate H Urine Nitrate Negative Urine Bilirubin Negative Urine Urobilinogen 2.0 H Ur Leukocyte Esterase Trace H Urine RBC 37 H Urine WBC 5 Ur Squamous Epith Cells 2 Granular Casts 3 Urine Mucus Few H Micro UA Comment Culture not ind Ur Microscopic Review Not Reportable Urine Culture Comments Culture not ind <Mc Talbert E - Last Filed: 08/06/18 19:14> Assessment and Plan (1) Diverticulitis Status: Acute Code(s): K57.92 - Diverticulitis of intestine, part unspecified , without perforation or abscess without bleeding - Plan This patient is a 58-year-old female with history of diverticulitis and tubal ligation. Patient presented to the emergency room at [facility] on 08/05/2018 with complaint of left lower quadrant abdominal pain onset 3 days. Patient reported she had not had a bowel movement in over 1 week. She reported associated nausea with vomiting. The patient describes left lower quadrant pain as a cramping pain that is intermittent. She states this pain does not radiate, and she rates it at 3/out of 10 at this time. Upon consultation, patient describes left lower quadrant cramping pain times 1 week. She reports no bowel movement for 1 week. States small amounts of brown stool intermittently. Patient states she took [id number] laxative without effect. She states it only increased the cramping but did not result in a bowel movement. Patient denies history of ever having an EGD, but does state that she had a colonoscopy "many years ago". She states to her recollection there were no polyps found, only hemorrhoids. Patient denies any noted bleeding. Denies fever or chills. Patient reporting continued nausea over 1 week but states that vomiting began after she took laxative. Denies difficulty swallowing, painful swallowing or heartburn. She denies tobacco use, and states alcohol use "less than socially" . Denies use of NSAIDs or aspirin. Patient endorses family history including paternal grandmother-diverticulitis, maternal grandmother-pancreatic cancer. Our service has been consulted to evaluate patient's diverticulitis and partial obstruction. Diverticulitis 08/05/2018 CT abdomen and pelvis revealed the following findings: Persistent moderate severity diverticulitis of the proximal sigmoid colon. An associated partial obstruction has developed and there is new long segment colitis, especially in the transverse colon region. The new colitis is nonspecific, could be related to the partial obstruction/distention or infectious/ opportunistic. No other complications have developed. WBC 12.7 hemoglobin 12.4 hematocrit 36.3 total bilirubin 0.3 AST 23 ALT 28 alk phos 77 lipase 101 Diverticulitis 08/06/2018- WBC 28.3 hemoglobin 12.3 hematocrit 35.5 total bilirubin 0.6 AST 12 ALT 19 alk phos 65. Patient reporting intermittent nausea and urinary frequency. States she is passing gas. No BM today. Discussed with patient's nurse regarding obtaining urine specimen for urinalysis. Plan -N.p.o. -Flagyl/Cipro IV -Analgesic and antiemetic as per attending -Monitor labs -Bowel regimen -Continue IV hydration -Consider urine for UA and culture -Supportive care Further recommendations to follow based on patient status and findings This patient has been seen by myself and Dr. Talbert and this note is written on his behalf - Attending Attestation Dr. Talbert <Dinah Luna - Last Filed: 08/06/18 16:01> (1) Diverticulitis Status: Acute Code(s): K57.92 - Diverticulitis of intestine, part unspecified , without perforation or abscess without bleeding - Plan Patient seen and examined Agree with above Continue with current supportive care Monitor labs We will recommend starting low residue diet as of tomorrow if all is improving <Mc Talbert - Last Filed: 08/06/18 19:14>
[2018-08-06 16:34] LABS: Bilirubin,Urine Negative (Negative); Clarity,Urine Hazy (Clear); Color,Urine Amber (Yellw/Straw); Glucose,Urine (UA) Negative (Negative); Leukocyte Esterase,Urine Trace (Negative); Mucus,Urine Few /lpf (Occasional); Nitrite,Urine Negative (Negative); Specific Gravity,Urine 1.026 (1.002-1.035); Squamous Epithelial Cell,Urine 2 /hpf (0-5)
[2018-08-07] MEDS: Morphine Inj 4 MG/ML Vial IV.PUSH PRN ×5 (01:03→20:19)
[2018-08-07] MEDS: Sodium Chloride 0.45 % Inj 1,000 ML IV.CONT SCH ×3 (04:13→22:14)
[2018-08-07] MEDS: Thyroid 60 MG Tablet PO SCH (05:57)
[2018-08-07] MEDS: Senna/Docusate Sodium 8.6/50 MG Tablet PO SCH ×2 (08:11→20:18)
[2018-08-07] MEDS: Ciprofloxacin 400 MG/200 ML 400 MG/200 ML PIGGYBACK IV.SIG SCH ×2 (08:12→20:20)
--- NOTE | 2018-08-07 11:30 | P.PNFP ---
Subjective Interval history: She tells me abd pain is improved and she passed gase ealier today and is hoping for a diet order today. Results - Labs Result diagrams: 08/06/18 08:32 08/06/18 08:32 Abnormal lab results 08/06/18 Range/Units 15:35 Urine Clarity Hazy H (Clear) Urine Protein 30 H (Neg-Trace) mg/dL Urine Occult Blood Moderate H (Negative) Urine Urobilinogen 2.0 H (Less than 2) mg/dL Ur Leukocyte Esterase Trace H (Negative) Urine RBC 37 H (0-3) /hpf Urine Mucus Few H (Occasional) /lpf Urine 08/06/18 Range/Units 15:35 Urine Color Ramonita (Yellw/Straw) Urine Clarity Hazy H (Clear) Urine pH 5.0 (5.0-8.5) Ur Specific [place] 1.026 (1.002-1.035) Urine Protein 30 H (Neg-Trace) mg/dL Urine Glucose (UA) Negative (Negative) mg/dL Physical Exam Vital signs: Vital Signs 08/06/18 12:00 08/06/18 16:00 08/06/18 20:00 Temperature 99.3 F 99.2 F 99.4 F Pulse Rate 86 90 91 H Respiratory Rate 18 18 20 Blood Pressure 151/68 H 126/58 L 149/82 H Pulse Oximetry 99 97 95 08/07/18 00:00 08/07/18 04:00 Temperature 99.6 F 98.4 F Pulse Rate 84 84 Respiratory Rate 17 19 Blood Pressure 138/78 131/70 Pulse Oximetry 93 L 96 Intake & Output 08/06/18 08/07/18 08/07/18 18:59 06:59 18:59 Intake Total 1500 / 1500 300 / 300 Output Total 600 / 600 Balance 900 / 900 300 / 300 Weight 131.9 kg Intake: IV 1500 / 1500 300 / 300 1/2 Normal Saline Inj 1,000 ML 1000 / 1000 @ 100 mls/hr IV.CONT .Q10H DOTTIE Rx#:[id number] Cipro 400 MG/200 ML Inj 400 mg 200 / 200 200 / 200 In 200 ml @ 200 mls/hr IV.SIG Q12HR DOTTIE Rx#:[id number] KCl 20 mEq Premix Inj 20 meq In 200 / 200 100 ml @ 50 mls/hr IV.SIG Q2H DOTTIE Rx#:[id number] Flagyl 500 MG Inj 100 ML @ 100 100 / 100 100 / 100 mls/hr IV.SIG Q8H DOTTIE Rx#: [id number] Oral 0 / 0 Output: Urine 600 / 600 Other: # Voids 2 # Bowel Movements 0 - Constitutional no acute distress - Routine HEENT Exam Head: Present: normocephalic, atraumatic ENT: Present: mucous membranes moist - Routine Neck Exam Present: supple, full ROM - Routine Respiratory Exam Present: CTA bilaterally - Routine Cardiovascular Exam Present: RRR, S1, S2 - Routine Abdominal Exam Present: soft, normoactive bowel sounds Comments: mild tenderness in the left lower quad and across the upper abd - Routine Extremities Exam Present: full ROM - Routine Skin Exam Present: intact - Routine Neurological Exam Present: alert, oriented X3 - Detailed Neurological Exam: Coma Scale Eye Opening: Spontaneous Verbal Response: Oriented Motor Response: Obey commands [place] Coma Scale Total: 15 - Routine Psychiatric Exam Present: normal affect, normal thought process Assessment and Plan - Assessment (1) Diverticulitis Code(s): K57.92 - Diverticulitis of intestine, part unspecified, without perforation or abscess without bleeding Status: Acute Plan: NPO, cont IVF, GI monitoring, added Zofran for nausea and prgress diet per GI. Pain controlled (2) Hypokalemia Code(s): E87.6 - Hypokalemia Status: Acute Plan: Potassium replace yesterday with repeat pending today - Assessment and Plan 08/06/18- Abdominal tenderness improved and has not had BM though she is passing gas. She remains on Cipro, flagyl Iv. Potassium 2.4 again yesterday and 40 meq IV given and repeat pending today.
[2018-08-07 13:20] LABS: Anion Gap 6 meq/L (5-15); Blood Urea Nitrogen 14 mg/dL (7-18); Calcium 7.7 mg/dL (8.5-10.1); Carbon Dioxide 35.5 meq/L (21.0-32.0); Chloride 95 meq/L (98-107); Glomerular Filtration Rate Greater Than 89 mL/min (>89); Glucose,Random 113 mg/dL (74-106); Sodium 136 meq/L (136-145)
[2018-08-07 13:23] LABS: Potassium 2.6 meq/L (3.5-5.1)
--- NOTE | 2018-08-07 14:31 | P.PNGI ---
Subjective Interval history: Pt is resting in bed, cont. to have diffused abd pain, passed gas this am, no BMs, she feels nauseous, inquiring about diet Physical Exam Vital signs: Vital Signs 08/06/18 16:00 08/06/18 20:00 08/07/18 00:00 Temperature 99.2 F 99.4 F 99.6 F Pulse Rate 90 91 H 84 Respiratory Rate 18 20 17 Blood Pressure 126/58 L 149/82 H 138/78 Pulse Oximetry 97 95 93 L 08/07/18 04:00 Temperature 98.4 F Pulse Rate 84 Respiratory Rate 19 Blood Pressure 131/70 Pulse Oximetry 96 Intake & Output 08/06/18 08/07/18 08/07/18 18:59 06:59 18:59 Intake Total 1500 / 1500 300 / 300 1300 / 1300 Output Total 600 / 600 Balance 900 / 900 300 / 300 1300 / 1300 Weight 131.9 kg Intake: IV 1500 / 1500 300 / 300 1300 / 1300 1/2 Normal Saline Inj 1,000 ML 1000 / 1000 1000 / 1000 @ 100 mls/hr IV.CONT .Q10H DOTTIE Rx#:[id number] Cipro 400 MG/200 ML Inj 400 mg 200 / 200 200 / 200 200 / 200 In 200 ml @ 200 mls/hr IV.SIG Q12HR DOTTIE Rx#:[id number] KCl 20 mEq Premix Inj 20 meq In 200 / 200 100 ml @ 50 mls/hr IV.SIG Q2H DOTTIE Rx#:[id number] Flagyl 500 MG Inj 100 ML @ 100 100 / 100 100 / 100 100 / 100 mls/hr IV.SIG Q8H DOTTIE Rx#: [id number] Oral 0 / 0 Output: Urine 600 / 600 Other: # Voids 2 # Bowel Movements 0 - Constitutional no acute distress - Routine HEENT Exam Head: Present: normocephalic - Routine Neck Exam Present: supple - Routine Respiratory Exam Present: CTA bilaterally - Routine Cardiovascular Exam Present: RRR - Routine Abdominal Exam Present: soft, normoactive bowel sounds, tenderness. Absent: distended, rebound - Routine Skin Exam Present: intact, dry - Routine Neurological Exam Present: alert, oriented X3 Results - Labs CBC & Chem 7: 08/06/18 08:32 08/07/18 12:25 Laboratory Results - last 24 hr 08/06/18 08/07/18 15:35 12:25 Sodium 136 Potassium 2.6 L* Chloride 95 L Carbon Dioxide 35.5 H Anion Gap 6 BUN 14 Creatinine 0.65 Estimated GFR Greater than 89 Random Glucose 113 H Calcium 7.7 L Urine Color Ramonita Urine Clarity Hazy H Urine pH 5.0 Ur Specific [place] 1.026 Urine Protein 30 H Urine Glucose (UA) Negative Urine Ketones Negative Urine Occult Blood Moderate H Urine Nitrate Negative Urine Bilirubin Negative Urine Urobilinogen 2.0 H Ur Leukocyte Esterase Trace H Urine RBC 37 H Urine WBC 5 Ur Squamous Epith Cells 2 Granular Casts 3 Urine Mucus Few H Micro UA Comment Culture not ind Ur Microscopic Review Not Reportable Urine Culture Comments Culture not ind Assessment and Plan (1) Diverticulitis Status: Acute Code(s): K57.92 - Diverticulitis of intestine, part unspecified , without perforation or abscess without bleeding - Plan - Diverticulitis of intestine ( second episode) On cipro and Flagyl, passed gas this am, no BM, cont. to have pain CT abdomen and pelvis revealed the following findings: Persistent moderate severity diverticulitis of the proximal sigmoid colon. An associated partial obstruction has developed and there is new long segment colitis, especially in the transverse colon region. The new colitis is nonspecific, could be related to the partial obstruction/distention or infectious/opportunistic. No other complications have developed. Colonoscopy was yrs ago - Hypokalemia- per attending - Leukocytosis- likely secondary to above Plan: - Fulls - Abd X-ray today - Cont. Cipro and Flagyl - Monitor labs - Cont. Bowel regimen - Supportive care - Colonoscopy in 6 weeks - Pt seen and examined by Dr. Tobias and myself and this note is written on her behalf.
--- NOTE | 2018-08-07 15:17 | XR ---
EXAM DATE: 08/07/2018 2:58 PM EDT AGE/SEX: 58 years / Female INDICATIONS: Distention, lack of bowel movement for 1 week with bilateral abdomen pain. CLINICAL DATA: This is the patient's initial encounter. Patient reports that signs and symptoms have been present for 1 week and indicates a pain score of 6/10. MEDICAL/SURGICAL HISTORY: Diverticulitis. Tubal ligation. COMPARISON: No prior exams available for comparison. FINDINGS: 3 AP supine views of the abdomen. Scattered gas in the colon. Transverse colon mildly distended. Sca ttered gas in the small bowel. Moderate degenerative findings of the lower thoracic spine. No abnorma l abdominal calcification. CONCLUSION: Nonspecific bowel gas pattern with mildly distended air-filled transverse colon. Electronically signed by: Darrick White MD 08/07/2018 3:15 PM EDT
[2018-08-07] MEDS: Potassium Chlor 20 mEq Premix 20 MEQ/100 ML PIGGYBACK IV.SIG SCH ×2 (15:57→18:29)
[2018-08-07 17:54] LABS: Hematocrit 33.4 % (35.0-46.0); Hemoglobin 11.1 gm/dL (11.6-15.3); Mean Corpuscular HGB Conc 33.3 % (32.0-36.0); Mean Corpuscular Volume 81.2 fL (80.0-100.0); Mean Platelet Volume 7.4 fL (7.0-11.0); Platelet Count 276 th/mm3 (150-450); Red Blood Count 4.11 mil/mm3 (4.00-5.30); Red Cell Distribution Width 16.8 % (11.6-17.2); White Blood Count 20.3 th/mm3 (4.0-11.0)
[2018-08-08] MEDS: Morphine Inj 4 MG/ML Vial IV.PUSH PRN ×6 (00:21→21:55)
[2018-08-08] MEDS: Thyroid 60 MG Tablet PO SCH (05:52)
[2018-08-08] MEDS: Sodium Chloride 0.45 % Inj 1,000 ML IV.CONT SCH ×4 (05:58→21:56)
[2018-08-08 08:56] LABS: Anion Gap 9 meq/L (5-15); Blood Urea Nitrogen 10 mg/dL (7-18); Calcium 7.8 mg/dL (8.5-10.1); Carbon Dioxide 36.1 meq/L (21.0-32.0); Chloride 94 meq/L (98-107); Glomerular Filtration Rate Greater Than 89 mL/min (>89); Glucose,Random 105 mg/dL (74-106); Sodium 139 meq/L (136-145)
[2018-08-08 09:11] LABS: Potassium 2.4 meq/L (3.5-5.1)
[2018-08-08] MEDS: Senna/Docusate Sodium 8.6/50 MG Tablet PO SCH ×2 (09:17→20:29)
[2018-08-08] MEDS: Ciprofloxacin 400 MG/200 ML 400 MG/200 ML PIGGYBACK IV.SIG SCH ×2 (09:17→20:29)
--- NOTE | 2018-08-08 10:21 | P.PNFP ---
Subjective Interval history: She tells me she is tolerating clear liquids and passing more gas. Abd pain cont to improve and she rested well last night. Results - Labs Result diagrams: 08/07/18 17:36 08/08/18 07:22 Abnormal lab results 08/07/18 08/07/18 08/08/18 Range/Units 12:25 17:36 07:22 WBC 20.3 H (4.0-11.0) th/mm3 Hgb 11.1 L (11.6-15.3) gm/dL Hct 33.4 L (35.0-46.0) % Potassium 2.6 L* 2.4 L* (3.5-5.1) meq/L Chloride 95 L 94 L (98-107) meq/L Carbon Dioxide 35.5 H 36.1 H (21.0-32.0) meq/L Random Glucose 113 H (74-106) mg/dL Calcium 7.7 L 7.8 L (8.5-10.1) mg/dL Short CBC 08/07/18 Range/Units 17:36 WBC 20.3 H (4.0-11.0) th/mm3 Hgb 11.1 L (11.6-15.3) gm/dL Hct 33.4 L (35.0-46.0) % Plt Count 276 (150-450) th/mm3 BMP 08/07/18 08/08/18 12:25 07:22 Sodium 136 139 Potassium 2.6 L* 2.4 L* Chloride 95 L 94 L Carbon Dioxide 35.5 H 36.1 H BUN 14 10 Creatinine 0.65 0.60 Calcium 7.7 L 7.8 L - Imaging Impressions Abdomen X-Ray 08/07/18 00:00 CONCLUSION: Nonspecific bowel gas pattern with mildly distended air-filled transverse colon. Physical Exam Vital signs: Vital Signs 08/07/18 12:00 08/07/18 16:00 08/07/18 19:58 Temperature 98.3 F 98.4 F 98 F Pulse Rate 82 78 82 Respiratory Rate 20 20 18 Blood Pressure 144/67 H 143/64 H 149/76 H Pulse Oximetry 97 96 94 L 08/08/18 00:00 08/08/18 04:00 Temperature 98.1 F 97.5 F L Pulse Rate 75 76 Respiratory Rate 18 18 Blood Pressure 125/59 L 161/74 H Pulse Oximetry 97 97 Intake & Output 08/07/18 08/08/18 08/08/18 19:59 06:59 18:59 Intake Total Balance Weight Intake: IV 1/2 Normal Saline Inj 1,000 ML @ 100 mls/hr IV.CONT .Q10H DOTTIE Rx#:[id number] Cipro 400 MG/200 ML Inj 400 mg In 200 ml @ 200 mls/hr IV.SIG Q12HR DOTTIE Rx#:[id number] KCl 20 mEq Premix Inj 20 meq In 100 ml @ 50 mls/hr IV.SIG Q2H DOTTIE Rx#:[id number] Flagyl 500 MG Inj 100 ML @ 100 mls/hr IV.SIG Q8H DOTTIE Rx#: [id number] Oral Other: # Voids # Bowel Movements - Constitutional no acute distress - Routine HEENT Exam Head: Present: normocephalic, atraumatic Eye: Present: EOMI, PERRL ENT: Present: mucous membranes moist - Routine Neck Exam Present: supple, full ROM - Routine Respiratory Exam Present: CTA bilaterally - Routine Cardiovascular Exam Present: RRR, S1, S2 - Routine Abdominal Exam Present: soft, normoactive bowel sounds. Absent: tenderness - Routine Extremities Exam Absent: cyanosis, edema - Routine Skin Exam Present: intact - Routine Neurological Exam Present: alert, oriented X3 - Detailed Neurological Exam: Coma Scale Eye Opening: Spontaneous Verbal Response: Oriented Motor Response: Obey commands [place] Coma Scale Total: 15 - Routine Psychiatric Exam Present: normal affect, normal thought process Assessment and Plan - Assessment (1) Diverticulitis Code(s): K57.92 - Diverticulitis of intestine, part unspecified, without perforation or abscess without bleeding Status: Acute Plan: Tolerating clears and passing more gas and abd pain improved. Now fatplate reveals air in the distal colon as the obstruction has resolved. GI monitoring. (2) Hypokalemia Code(s): E87.6 - Hypokalemia Status: Acute Plan: Potassium 40 mEq IV again replaced yesterday with repeat today back down to 2.4. As she is now taking PO, I will add KCL 40 meq BID and monitor K daily until WNL. - Assessment and Plan Abdominal tenderness improved and has passing more gas overnight. Abd flatplate reveals obstruction has resolved. She remains on Cipro, flagyl IV, but I have changed her to PO KCL 40 mEq BID to replete K stores and will monitor K daily. F/U plan per GI as diet is progressed.
--- NOTE | 2018-08-08 11:00 | XR ---
EXAM DATE: 08/08/2018 10:46 AM EST AGE/SEX: 58 years / Female INDICATIONS: Middle abdominal pain. No bowel movement for 10 days. CLINICAL DATA: This is the patient's subsequent encounter. Patient reports that signs and symptoms h ave been present for 1 week and indicates a pain score of 6/10. MEDICAL/SURGICAL HISTORY: Diverticulitis. Tubal ligation. COMPARISON: [facility] – [place], ABDOMEN 1V KUB, 08/07/2018. . FINDINGS: Supine and upright views of the abdomen were performed. The abdominal bowel gas pattern is nonspecifi c with air-fluid levels in the colon.. No abnormal masses, calcifications, or organomegaly is seen. T he visualized lower lungs are clear. No evidence of free intraperitoneal gas. The osseous structures are unremarkable. CONCLUSION: Nonspecific gas pattern with air-fluid levels in the colon. No evidence of pathologic distention, free air or mass effect. Electronically signed by: Jeremiah Quintero MD 08/08/2018 10:59 AM EST
--- NOTE | 2018-08-08 16:58 | P.PNGI ---
Subjective Interval history: Pt is resting in bed, accompanied by visitor. She is doing better today, passing more gas, No nausea or vomiting, still with mild abd cramps <Marilyn Ruiz - Last Filed: 08/08/18 16:54> Physical Exam Vital signs: Vital Signs 08/07/18 19:58 08/08/18 00:00 08/08/18 04:00 Temperature 98 F 98.1 F 97.5 F L Pulse Rate 82 75 76 Respiratory Rate 18 18 18 Blood Pressure 149/76 H 125/59 L 161/74 H Pulse Oximetry 94 L 97 97 08/08/18 08:00 Temperature 98.0 F Pulse Rate 74 Respiratory Rate 20 Blood Pressure 144/60 H Pulse Oximetry 97 Intake & Output 08/07/18 08/08/18 08/08/18 19:59 06:59 18:59 Intake Total 300 / 300 Balance 300 / 300 Weight Intake: IV 300 / 300 1/2 Normal Saline Inj 1,000 ML @ 100 mls/hr IV.CONT .Q10H [facility] Rx#:[id number] Cipro 400 MG/200 ML Inj 400 mg 200 / 200 In 200 ml @ 200 mls/hr IV.SIG Q12HR [facility] Rx#:[id number] KCl 20 mEq Premix Inj 20 meq In 100 ml @ 50 mls/hr IV.SIG Q2H [facility] Rx#:[id number] Flagyl 500 MG Inj 100 ML @ 100 100 / 100 mls/hr IV.SIG Q8H [facility] Rx#: [id number] Oral Other: # Voids Date of Last Bowel Movement 07/29/18 # Bowel Movements - Constitutional no acute distress - Routine HEENT Exam Head: Present: normocephalic - Routine Neck Exam Present: supple - Routine Respiratory Exam Present: CTA bilaterally - Routine Cardiovascular Exam Present: RRR - Routine Abdominal Exam Present: soft, normoactive bowel sounds, tenderness. Absent: distended, rebound - Routine Skin Exam Present: intact, dry - Routine Neurological Exam Present: alert, oriented X3 <DeneenchristinaMarilyn - Last Filed: 08/08/18 16:54> Vital signs: Vital Signs 08/08/18 00:00 08/08/18 04:00 08/08/18 08:00 Temperature 98.1 F 97.5 F L 98.0 F Pulse Rate 75 76 74 Respiratory Rate 18 18 20 Blood Pressure 125/59 L 161/74 H 144/60 H Pulse Oximetry 97 97 97 Intake & Output 08/08/18 08/08/18 08/09/18 06:59 18:59 06:59 Intake Total 1180 / 1180 Output Total 600 / 600 Balance 580 / 580 Weight Intake: IV 700 / 700 1/2 Normal Saline Inj 1,000 ML 400 / 400 @ 100 mls/hr IV.CONT .Q10H [facility] Rx#:[id number] Cipro 400 MG/200 ML Inj 400 mg 200 / 200 In 200 ml @ 200 mls/hr IV.SIG Q12HR [facility] Rx#:[id number] KCl 20 mEq Premix Inj 20 meq In 100 ml @ 50 mls/hr IV.SIG Q2H [facility] Rx#:[id number] Flagyl 500 MG Inj 100 ML @ 100 100 / 100 mls/hr IV.SIG Q8H [facility] Rx#: [id number] Oral 480 / 480 Output: Urine 600 / 600 Other: # Voids 3 Date of Last Bowel Movement 07/29/18 # Bowel Movements 0 <Lucia Tobias - Last Filed: 08/08/18 19:30> Results - Labs CBC & Chem 7: 08/07/18 17:36 08/08/18 07:22 Laboratory Results - last 24 hr 08/07/18 08/08/18 17:36 07:22 WBC 20.3 H RBC 4.11 Hgb 11.1 L Hct 33.4 L MCV 81.2 MCH 27.0 MCHC 33.3 RDW 16.8 Plt Count 276 MPV 7.4 Sodium 139 Potassium 2.4 L* Chloride 94 L Carbon Dioxide 36.1 H Anion Gap 9 BUN 10 Creatinine 0.60 Estimated GFR Greater than 89 Random Glucose 105 Calcium 7.8 L - Imaging Impressions Abdomen X-Ray 08/08/18 00:00 CONCLUSION: Nonspecific gas pattern with air-fluid levels in the colon. No evidence of pathologic distention, free air or mass effect. <Marilyn Ruiz - Last Filed: 08/08/18 16:54> - Labs CBC & Chem 7: 08/07/18 17:36 08/08/18 07:22 Laboratory Results - last 24 hr 08/08/18 07:22 Sodium 139 Potassium 2.4 L* Chloride 94 L Carbon Dioxide 36.1 H Anion Gap 9 BUN 10 Creatinine 0.60 Estimated GFR Greater than 89 Random Glucose 105 Calcium 7.8 L - Imaging Impressions Abdomen X-Ray 08/08/18 00:00 CONCLUSION: Nonspecific gas pattern with air-fluid levels in the colon. No evidence of pathologic distention, free air or mass effect. <Lucia Tobias - Last Filed: 08/08/18 19:30> Assessment and Plan (1) Diverticulitis Status: Acute Code(s): K57.92 - Diverticulitis of intestine, part unspecified , without perforation or abscess without bleeding - Plan - Diverticulitis of intestine ( second episode) On cipro and Flagyl, passing more gas today , no BM, cont. to have mild pain Abdomen X-Ray 08/08/18 Nonspecific gas pattern with air-fluid levels in the colon. No evidence of pathologic distention, free air or mass effect. CT abdomen and pelvis revealed the following findings: Persistent moderate severity diverticulitis of the proximal sigmoid colon. An associated partial obstruction has developed and there is new long segment colitis, especially in the transverse colon region. The new colitis is nonspecific, could be related to the partial obstruction/distention or infectious/opportunistic. No other complications have developed. Colonoscopy was yrs ago - Hypokalemia- per attending - Leukocytosis- likely secondary to above Plan: - Fulls - Cont. Cipro and Flagyl - Monitor labs - Cont. Bowel regimen - Supportive care - Colonoscopy in 6 weeks - Pt seen and examined by Dr. Tobias and myself and this note is written on her behalf. <Marilyn Ruiz - Last Filed: 08/08/18 16:54> (1) Diverticulitis Status: Acute Code(s): K57.92 - Diverticulitis of intestine, part unspecified , without perforation or abscess without bleeding - Attending Attestation seen, examined agree with above <Lucia Tobias - Last Filed: 08/08/18 19:30>
[2018-08-09] MEDS: Morphine Inj 4 MG/ML Vial IV.PUSH PRN ×4 (04:24→18:39)
[2018-08-09] MEDS: Thyroid 60 MG Tablet PO SCH (05:38)
[2018-08-09] MEDS: Sodium Chloride 0.45 % Inj 1,000 ML IV.CONT SCH ×3 (06:01→12:35)
[2018-08-09] MEDS: Senna/Docusate Sodium 8.6/50 MG Tablet PO SCH ×2 (08:41→20:48)
[2018-08-09] MEDS: Ciprofloxacin 400 MG/200 ML 400 MG/200 ML PIGGYBACK IV.SIG SCH ×2 (08:41→20:48)
[2018-08-09] MEDS ORDERED: Potassium Chlor 20 mEq Premix 20 MEQ/100 ML PIGGYBACK IV.SIG ONE (09:00)
--- NOTE | 2018-08-09 12:10 | P.PNFP ---
Subjective Interval history: Seen ambulating in room. Report 2 bm from last night and this am Mild abdominal pain K+ low this am Results - Labs Result diagrams: 08/07/18 17:36 08/09/18 05:45 Abnormal lab results 08/09/18 Range/Units 05:45 Potassium 2.6 L* (3.5-5.1) meq/L BMP 08/09/18 05:45 Potassium 2.6 L* Physical Exam Vital signs: Vital Signs 08/08/18 16:00 08/08/18 20:00 08/09/18 00:00 Temperature 98.3 F 98.5 F 98.0 F Pulse Rate 77 78 80 Respiratory Rate 20 20 18 Blood Pressure 140/70 155/68 H 138/71 Pulse Oximetry 94 L 95 97 08/09/18 04:00 08/09/18 08:00 Temperature 97.6 F 98.0 F Pulse Rate 74 75 Respiratory Rate 20 18 Blood Pressure 141/66 H 140/71 Pulse Oximetry 96 97 Intake & Output 08/08/18 08/09/18 08/09/18 18:59 06:59 18:59 Intake Total 1420 / 1420 1979 1200 / 1200 Output Total 600 / 600 Balance 820 / 820 1979 1200 / 1200 Weight 130.8 kg Intake: IV 700 / 700 1400 / 1400 1200 / 1200 1/2 Normal Saline Inj 1,000 ML 400 / 400 1000 / 1000 1000 / 1000 @ 100 mls/hr IV.CONT .Q10H [facility] Rx#:[id number] Cipro 400 MG/200 ML Inj 400 mg 200 / 200 200 / 200 200 / 200 In 200 ml @ 200 mls/hr IV.SIG Q12HR [facility] Rx#:[id number] Flagyl 500 MG Inj 100 ML @ 100 100 / 100 200 / 200 mls/hr IV.SIG Q8H [facility] Rx#: [id number] Oral 720 / 720 580 / 580 Output: Urine 600 / 600 Other: # Voids 3 4 Date of Last Bowel Movement 07/29/18 07/29/18 # Bowel Movements 0 2 - Routine HEENT Exam Head: Present: normocephalic Eye: Present: PERRL - Routine Neck Exam Present: supple - Routine Respiratory Exam Present: CTA bilaterally - Routine Cardiovascular Exam Present: S1, S2 - Routine Abdominal Exam Present: soft - Detailed Abdominal Exam Bowel sounds: hypoactive - Routine Extremities Exam Present: pulses intact - Routine Skin Exam Present: dry, warm - Routine Neurological Exam Present: alert, oriented X3 - Routine Psychiatric Exam Present: cooperative Assessment and Plan - Assessment (1) Diverticulitis Code(s): K57.92 - Diverticulitis of intestine, part unspecified, without perforation or abscess without bleeding Status: Acute Plan: Tolerating diet and passing more gas and abd pain improved 2 BM reported. New flat plate reveals air in the distal colon as the obstruction has resolved. GI monitoring. (2) Hypokalemia Code(s): E87.6 - Hypokalemia Status: Acute Plan: Potassium 20 mEq IV today for K 2.6, will cont KCL 40 meq BID and monitor K daily until WNL. - Assessment and Plan Abdominal tenderness improved and has passing more gas overnight. Abd flatplate reveals obstruction has resolved. She remains on Cipro, flagyl IV, but I have changed her to PO KCL 40 mEq BID to replete K stores and will monitor K daily. F/U plan per GI as diet is progressed. 08/09/18- Reports feeling better, Had 2 BM, tolerating diet, Potassium low replacement ordered. Cpnt w/ IV flagyl, cipro. DC home when cleared by GI
--- NOTE | 2018-08-09 13:43 | P.PNGI ---
Subjective Interval history: Patient has been up in the bathroom x3 today, now having stools, since no BM since 07/29/2018 patient states she does have a history of constipation but usually can defecate with laxative assistance. Initial BM hard bolus, second bowel movement formed followed by some looser stool which is probably residual. Patient hungry tolerating full liquid diet current hemoglobin 11.1, potassium 2.6 and receiving supplements leukocytosis with mild improvement currently 20.3 <Carrol Reich - Last Filed: 08/09/18 14:01> Physical Exam Vital signs: Vital Signs 08/08/18 16:00 08/08/18 20:00 08/09/18 00:00 Temperature 98.3 F 98.5 F 98.0 F Pulse Rate 77 78 80 Respiratory Rate 20 20 18 Blood Pressure 140/70 155/68 H 138/71 Pulse Oximetry 94 L 95 97 08/09/18 04:00 08/09/18 08:00 08/09/18 12:00 Temperature 97.6 F 98.0 F 97.9 F Pulse Rate 74 75 69 Respiratory Rate 20 18 18 Blood Pressure 141/66 H 140/71 149/80 H Pulse Oximetry 96 97 98 Intake & Output 08/08/18 08/09/18 08/09/18 18:59 06:59 18:59 Intake Total 1420 / 1420 1979 / 1979 1300 / 1300 Output Total 600 / 600 Balance 820 / 820 1979 1300 / 1300 Weight 130.8 kg Intake: IV 700 / 700 1400 / 1400 1300 / 1300 1/2 Normal Saline Inj 1,000 ML 400 / 400 1000 / 1000 1000 / 1000 @ 100 mls/hr IV.CONT .Q10H [facility] Rx#:[id number] Cipro 400 MG/200 ML Inj 400 mg 200 / 200 200 / 200 200 / 200 In 200 ml @ 200 mls/hr IV.SIG Q12HR [facility] Rx#:[id number] KCl 20 mEq Premix Inj 20 meq In 100 / 100 100 ml @ 50 mls/hr IV.SIG ONCE ONE Rx#:[id number] Flagyl 500 MG Inj 100 ML @ 100 100 / 100 200 / 200 mls/hr IV.SIG Q8H [facility] Rx#: [id number] Oral 720 / 720 580 / 580 Output: Urine 600 / 600 Other: # Voids 3 4 Date of Last Bowel Movement 07/29/18 07/29/18 # Bowel Movements 0 2 - Constitutional mild distress, morbidly obese, cooperative - Routine HEENT Exam Head: Present: normocephalic ENT: Present: mucous membranes moist - Routine Neck Exam Present: supple - Routine Respiratory Exam Present: accessory muscle use (Even, unlabored at rest) - Routine Cardiovascular Exam Present: S1, S2 - Routine Abdominal Exam Present: soft, normoactive bowel sounds (No obvious distention or tenderness) <Carrol Reich - Last Filed: 08/09/18 14:01> Vital signs: Vital Signs 08/08/18 20:00 08/09/18 00:00 08/09/18 04:00 Temperature 98.5 F 98.0 F 97.6 F Pulse Rate 78 80 74 Respiratory Rate 20 18 20 Blood Pressure 155/68 H 138/71 141/66 H Pulse Oximetry 95 97 96 08/09/18 08:00 08/09/18 12:00 08/09/18 16:00 Temperature 98.0 F 97.9 F 98.1 F Pulse Rate 75 69 77 Respiratory Rate 18 18 18 Blood Pressure 140/71 149/80 H 135/66 Pulse Oximetry 97 98 98 Intake & Output 08/08/18 08/09/18 08/09/18 18:59 06:59 18:59 Intake Total 1420 / 1420 1979 1400 / 1400 Output Total 600 / 600 Balance 820 / 820 1979 1400 / 1400 Weight 130.8 kg Intake: IV 700 / 700 1400 / 1400 1400 / 1400 1/2 Normal Saline Inj 1,000 ML 400 / 400 1000 / 1000 1000 / 1000 @ 100 mls/hr IV.CONT .Q10H [facility] Rx#:[id number] Cipro 400 MG/200 ML Inj 400 mg 200 / 200 200 / 200 200 / 200 In 200 ml @ 200 mls/hr IV.SIG Q12HR [facility] Rx#:[id number] KCl 20 mEq Premix Inj 20 meq In 100 / 100 100 ml @ 50 mls/hr IV.SIG ONCE ONE Rx#:[id number] Flagyl 500 MG Inj 100 ML @ 100 100 / 100 200 / 200 100 / 100 mls/hr IV.SIG Q8H [facility] Rx#: [id number] Oral 720 / 720 580 / 580 Output: Urine 600 / 600 Other: # Voids 3 4 Date of Last Bowel Movement 07/29/18 07/29/18 08/09/18 # Bowel Movements 0 2 <Lucia Tobias - Last Filed: 08/09/18 18:18> Results - Labs CBC & Chem 7: 08/07/18 17:36 08/09/18 05:45 Laboratory Results - last 24 hr 08/09/18 05:45 Potassium 2.6 L* <Carrol Reich - Last Filed: 08/09/18 14:01> - Labs CBC & Chem 7: 08/07/18 17:36 08/09/18 05:45 Laboratory Results - last 24 hr 08/09/18 05:45 Potassium 2.6 L* - Imaging Impressions Abdomen X-Ray 08/09/18 00:00 CONCLUSION: Decreasing amount of stool in the colon otherwise stable abdomen. No evidence of pathologic distention <Lucia Tobias - Last Filed: 08/09/18 18:18> Assessment and Plan (1) Diverticulitis Status: Acute Code(s): K57.92 - Diverticulitis of intestine, part unspecified , without perforation or abscess without bleeding - Plan - Diverticulitis of intestine ( second episode) On cipro and Flagyl, passing more gas today , no BM, cont. to have mild pain Abdomen X-Ray 08/08/18 Nonspecific gas pattern with air-fluid levels in the colon. No evidence of pathologic distention, free air or mass effect. CT abdomen and pelvis revealed the following findings: Persistent moderate severity diverticulitis of the proximal sigmoid colon. An associated partial obstruction has developed and there is new long segment colitis, especially in the transverse colon region. The new colitis is nonspecific, could be related to the partial obstruction/distention or infectious/opportunistic. No other complications have developed. Colonoscopy was yrs ago - Hypokalemia- per attending - Leukocytosis- likely secondary to above 08/09/2018 patient responding to Cipro and Flagyl and is now having multiple BMs initially hard stool but now soft. Appetite has improved patient currently tolerating full liquids. Patient has history of constipation, but has resolved now with multiple bowel movements. Discussed with patient the need to follow- up in the GI office once she is stable for discharge in 2-4 weeks and consider colonoscopy in 6-8 weeks patient denies any history of dyspepsia or dysphasia, no nausea no vomiting. Also discussed the need for daily regimen and to trial MiraLAX daily Plan: Diet full liquids for now Recheck abdominal x-rays, if unremarkable will increase diet to soft foods Leslie Shen, Still plan outpatient colonoscopy in approximately 6-8 weeks. Daily bowel regimen, MiraLAX Supportive care, further recommendations to follow Patient was seen per myself and Dr. Tobias, note was written on her behalf <Carrol Reich - Last Filed: 08/09/18 14:01> (1) Diverticulitis Status: Acute Code(s): K57.92 - Diverticulitis of intestine, part unspecified , without perforation or abscess without bleeding - Attending Attestation seen, examined agree with above <Lucia Tobias - Last Filed: 08/09/18 18:18>
--- NOTE | 2018-08-09 16:14 | XR ---
EXAM DATE: 08/09/2018 4:03 PM EST AGE/SEX: 58 years / Female INDICATIONS: Constipation. CLINICAL DATA: This is the patient's initial encounter. Patient reports that signs and symptoms have been present for 1 week and indicates a pain score of 9/10. MEDICAL/SURGICAL HISTORY: Diverticulitis. . uterine ablation, tubal ligation COMPARISON: [facility] [place], ABDOMEN 2V FLAT & UPRIGHT, 08/08/2018. . FINDINGS: The abdominal bowel gas pattern is normal. No abnormal masses, calcifications, or organomegaly is s een. The osseous structures are unremarkable. Decreasing amount of stool is identified in the colon.. CONCLUSION: Decreasing amount of stool in the colon otherwise stable abdomen. No evidence of pathologic distention Electronically signed by: Jeremiah Quintero MD 08/09/2018 4:12 PM EST
[2018-08-10] MEDS: Morphine Inj 4 MG/ML Vial IV.PUSH PRN ×3 (00:40→09:41)
[2018-08-10] MEDS: Sodium Chloride 0.45 % Inj 1,000 ML IV.CONT SCH ×3 (00:48→13:03)
[2018-08-10] MEDS: Thyroid 60 MG Tablet PO SCH (05:01)
[2018-08-10] MEDS ORDERED: Polyethylene Glycol 3350 17 GM Packet PO SCH (09:00)
[2018-08-10] MEDS: Ciprofloxacin 400 MG/200 ML 400 MG/200 ML PIGGYBACK IV.SIG SCH (09:38)
[2018-08-10] MEDS: Senna/Docusate Sodium 8.6/50 MG Tablet PO SCH (09:42)
[2018-08-10 13:39] LABS: Hematocrit 30.7 % (35.0-46.0); Hemoglobin 10.4 gm/dL (11.6-15.3); Mean Corpuscular HGB Conc 33.8 % (32.0-36.0); Mean Corpuscular Hemoglobin 27.4 pg (27.0-34.0); Mean Corpuscular Volume 81.1 fL (80.0-100.0); Mean Platelet Volume 7.1 fL (7.0-11.0); Platelet Count 322 th/mm3 (150-450); Red Blood Count 3.78 mil/mm3 (4.00-5.30); Red Cell Distribution Width 17.2 % (11.6-17.2); White Blood Count 8.7 th/mm3 (4.0-11.0)
[2018-08-10 13:45] LABS: Anion Gap 10 meq/L (5-15); Blood Urea Nitrogen 9 mg/dL (7-18); Calcium 7.5 mg/dL (8.5-10.1); Carbon Dioxide 30.2 meq/L (21.0-32.0); Chloride 103 meq/L (98-107); Glomerular Filtration Rate Greater Than 89 mL/min (>89); Glucose,Random 85 mg/dL (74-106); Sodium 143 meq/L (136-145)
--- NOTE | 2018-08-10 13:55 | P.PNGI ---
Subjective Interval history: Patient is up walking around in the room feeling much better denies any nausea vomiting or abdominal pain and is hoping to go home Discussed discharge planning and follow-up from a GI perspective in the office in 2-4 weeks and then we will consider colonoscopy in 6-8 weeks <Carrol Reich - Last Filed: 08/10/18 13:50> Physical Exam Vital signs: Vital Signs 08/09/18 16:00 08/09/18 20:00 08/10/18 00:00 Temperature 98.1 F 98.4 F 98.2 F Pulse Rate 77 90 92 H Respiratory Rate 18 16 15 Blood Pressure 135/66 149/67 H 144/60 H Pulse Oximetry 98 98 96 08/10/18 04:00 08/10/18 05:32 08/10/18 08:00 Temperature 98.1 F 98 F Pulse Rate 78 67 Respiratory Rate 18 7 L 20 Blood Pressure 118/64 147/63 H Pulse Oximetry 96 96 08/10/18 12:00 Temperature 98 F Pulse Rate 75 Respiratory Rate 22 Blood Pressure 130/59 L Pulse Oximetry 98 Intake & Output 08/09/18 08/10/18 08/10/18 18:59 06:59 18:59 Intake Total 2108 / 2108 1820 / 1820 1200 / 1200 Output Total 1400 / 1400 2100 / 2100 Balance 708 / 708 -280 / -280 1200 / 1200 Weight 132.1 kg Intake: IV 1400 / 1400 1400 / 1400 1200 / 1200 1/2 Normal Saline Inj 1,000 ML 1000 / 1000 1000 / 1000 1000 / 1000 @ 100 mls/hr IV.CONT .Q10H [facility] Rx#:[id number] Cipro 400 MG/200 ML Inj 400 mg 200 / 200 200 / 200 200 / 200 In 200 ml @ 200 mls/hr IV.SIG Q12HR [facility] Rx#:[id number] KCl 20 mEq Premix Inj 20 meq In 100 / 100 100 ml @ 50 mls/hr IV.SIG ONCE ONE Rx#:[id number] Flagyl 500 MG Inj 100 ML @ 100 100 / 100 200 / 200 mls/hr IV.SIG Q8H [facility] Rx#: [id number] Oral 708 / 708 420 / 420 Output: Urine 1400 / 1400 2100 / 2100 Other: Date of Last Bowel Movement 08/09/18 08/09/18 # Bowel Movements 3 - Constitutional no acute distress, obese, cooperative - Routine HEENT Exam Head: Present: normocephalic ENT: Present: mucous membranes moist - Routine Respiratory Exam Present: accessory muscle use (No shortness of breath noted) - Routine Cardiovascular Exam Present: S1, S2 - Routine Abdominal Exam Present: soft (Round, bowel sounds active no obvious discomfort or tenderness) <Carrol Reich - Last Filed: 08/10/18 13:50> Vital signs: Vital Signs 08/09/18 20:00 08/10/18 00:00 08/10/18 04:00 Temperature 98.4 F 98.2 F 98.1 F Pulse Rate 90 92 H 78 Respiratory Rate 16 15 18 Blood Pressure 149/67 H 144/60 H 118/64 Pulse Oximetry 98 96 96 08/10/18 05:32 08/10/18 08:00 08/10/18 12:00 Temperature 98 F 98 F Pulse Rate 67 75 Respiratory Rate 7 L 20 22 Blood Pressure 147/63 H 130/59 L Pulse Oximetry 96 98 Intake & Output 08/09/18 08/10/18 08/10/18 18:59 06:59 18:59 Intake Total 2108 / 2108 1820 / 1820 1300 / 1300 Output Total 1400 / 1400 2100 / 2100 Balance 708 / 708 -280 / -280 1300 / 1300 Weight 132.1 kg Intake: IV 1400 / 1400 1400 / 1400 1300 / 1300 1/2 Normal Saline Inj 1,000 ML 1000 / 1000 1000 / 1000 1000 / 1000 @ 100 mls/hr IV.CONT .Q10H [facility] Rx#:[id number] Cipro 400 MG/200 ML Inj 400 mg 200 / 200 200 / 200 200 / 200 In 200 ml @ 200 mls/hr IV.SIG Q12HR [facility] Rx#:[id number] KCl 20 mEq Premix Inj 20 meq In 100 / 100 100 ml @ 50 mls/hr IV.SIG ONCE ONE Rx#:[id number] Flagyl 500 MG Inj 100 ML @ 100 100 / 100 200 / 200 100 / 100 mls/hr IV.SIG Q8H [facility] Rx#: [id number] Oral 708 / 708 420 / 420 Output: Urine 1400 / 1400 2100 / 2100 Other: Date of Last Bowel Movement 08/09/18 08/09/18 # Bowel Movements 3 <Lucia Tobias - Last Filed: 08/10/18 18:42> Results - Labs CBC & Chem 7: 08/10/18 04:00 08/10/18 04:20 Laboratory Results - last 24 hr 08/10/18 08/10/18 08/10/18 04:00 04:20 04:20 WBC 8.7 RBC 3.78 L Hgb 10.4 L Hct 30.7 L MCV 81.1 MCH 27.4 MCHC 33.8 RDW 17.2 Plt Count 322 MPV 7.1 Sodium 143 Cancelled Potassium 3.0 L Cancelled Chloride 103 D Cancelled Carbon Dioxide 30.2 Cancelled Anion Gap 10 Cancelled BUN 9 Cancelled Creatinine 0.56 Cancelled Estimated GFR Greater than 89 Cancelled Random Glucose 85 Cancelled Calcium 7.5 L Cancelled - Imaging Impressions Abdomen X-Ray 08/09/18 00:00 CONCLUSION: Decreasing amount of stool in the colon otherwise stable abdomen. No evidence of pathologic distention <Carrol Reich - Last Filed: 08/10/18 13:50> - Labs CBC & Chem 7: 08/10/18 04:00 08/10/18 04:20 Laboratory Results - last 24 hr 08/10/18 08/10/18 08/10/18 04:00 04:20 04:20 WBC 8.7 RBC 3.78 L Hgb 10.4 L Hct 30.7 L MCV 81.1 MCH 27.4 MCHC 33.8 RDW 17.2 Plt Count 322 MPV 7.1 Sodium 143 Cancelled Potassium 3.0 L Cancelled Chloride 103 D Cancelled Carbon Dioxide 30.2 Cancelled Anion Gap 10 Cancelled BUN 9 Cancelled Creatinine 0.56 Cancelled Estimated GFR Greater than 89 Cancelled Random Glucose 85 Cancelled Calcium 7.5 L Cancelled <Lucia Tobias - Last Filed: 08/10/18 18:42> Assessment and Plan (1) Diverticulitis Status: Acute Code(s): K57.92 - Diverticulitis of intestine, part unspecified , without perforation or abscess without bleeding - Plan - Diverticulitis of intestine ( second episode) On cipro and Flagyl, passing more gas today , no BM, cont. to have mild pain Abdomen X-Ray 08/08/18 Nonspecific gas pattern with air-fluid levels in the colon. No evidence of pathologic distention, free air or mass effect. CT abdomen and pelvis revealed the following findings: Persistent moderate severity diverticulitis of the proximal sigmoid colon. An associated partial obstruction has developed and there is new long segment colitis, especially in the transverse colon region. The new colitis is nonspecific, could be related to the partial obstruction/distention or infectious/opportunistic. No other complications have developed. Colonoscopy was yrs ago - Hypokalemia- per attending - Leukocytosis- likely secondary to above 08/09/2018 patient responding to Cipro and Flagyl and is now having multiple BMs initially hard stool but now soft. Appetite has improved patient currently tolerating full liquids. Patient has history of constipation, but has resolved now with multiple bowel movements. Discussed with patient the need to follow- up in the GI office once she is stable for discharge in 2-4 weeks and consider colonoscopy in 6-8 weeks patient denies any history of dyspepsia or dysphasia, no nausea no vomiting. Also discussed the need for daily regimen and to trial MiraLAX daily 08/10/2018 patient is up walking the room and has shown gradual improvement with Cipro and Flagyl meds effective. Anemia no obvious bleeding which could be chronic currently 10.4 Leukocytosis resolved now WBC count 8.7 Diet has been advanced to regular diet, encourage patient to abstain from nuts seeds and popcorn and chew food well Okay to sign off from a GI perspective and follow with us in the office in 2-4 weeks. Plan: Diet regular diet chew food well Patient will need outpatient full dose Cipro and Flagyl regimen on DC Avoid nuts seeds popcorn explained to patient Bowel regimen MiraLAX daily or as needed Supportive care Patient was seen per myself and Dr. Tobias, note was written on her behalf <Carrol Reich - Last Filed: 08/10/18 13:50> (1) Diverticulitis Status: Acute Code(s): K57.92 - Diverticulitis of intestine, part unspecified , without perforation or abscess without bleeding - Attending Attestation seen, examined agree with above if dc fu office <Lucia Tobias - Last Filed: 08/10/18 18:42>
--- NOTE | 2018-08-10 15:07 | P.DS ---
Date of admission: 08/05/18 06:03 Primary care physician: Francisco Javier Castaneda DO Brief History from admission: Patient complains of left upper left lower quadrant pain ongoing for the past 3 days, she states that she has not had a bowel movement in over a week. And since 12:00 today she started having episodes of vomiting. She was recently was seen in office on 07/29/18 and GI consult was made, with worsening pain the next day she was She was treated in ER on 07/30/18 with Cipro and Flagyl. She continued to have more pain and present today to ER. DS: Diagnosis - Discharge Diagnosis (1) Diverticulitis Status: Acute (2) Hypokalemia Status: Acute DS: Summary Hospital Course: Presented for failed outpatient diverticulitis and partial bowel obstruction. Seen By GI, treated with gut rest, IVF, bowel regime. IV cipro and Flagyl. Hypokalemia while here replaced with combination of PO and IV. Abdomen soft, having BM, will dc home on PO Cipro/Flagyl and she will follow up with Gi in 2 weeks, and colonoscopy in 6 weeks. - Time Spent with Patient Total time spent providing and/or coordinating discharge services: 25 Less than 30 minutes - Quality: AMI Clinical Trial Participant: No - Quality: Stroke Symptom Onset Unknown: No - Quality: VTE Is this test being ordered to rule out VTE?: No Deep Vein Thrombosis/Pulmonary Embolism Present on Admission: No Exam Vital signs: Vital Signs 08/09/18 16:00 08/09/18 20:00 08/10/18 00:00 Temperature 98.1 F 98.4 F 98.2 F Pulse Rate 77 90 92 H Respiratory Rate 18 16 15 Blood Pressure 135/66 149/67 H 144/60 H Pulse Oximetry 98 98 96 08/10/18 04:00 08/10/18 05:32 08/10/18 08:00 Temperature 98.1 F 98 F Pulse Rate 78 67 Respiratory Rate 18 7 L 20 Blood Pressure 118/64 147/63 H Pulse Oximetry 96 96 08/10/18 12:00 Temperature 98 F Pulse Rate 75 Respiratory Rate 22 Blood Pressure 130/59 L Pulse Oximetry 98 Intake & Output 08/09/18 08/10/18 08/10/18 18:59 06:59 18:59 Intake Total 2108 / 2108 1820 / 1820 1300 / 1300 Output Total 1400 / 1400 2100 / 2100 Balance 708 / 708 -280 / -280 1300 / 1300 Weight 132.1 kg Intake: IV 1400 / 1400 1400 / 1400 1300 / 1300 1/2 Normal Saline Inj 1,000 ML 1000 / 1000 1000 / 1000 1000 / 1000 @ 100 mls/hr IV.CONT .Q10H [facility] Rx#:[id number] Cipro 400 MG/200 ML Inj 400 mg 200 / 200 200 / 200 200 / 200 In 200 ml @ 200 mls/hr IV.SIG Q12HR [facility] Rx#:[id number] KCl 20 mEq Premix Inj 20 meq In 100 / 100 100 ml @ 50 mls/hr IV.SIG ONCE ONE Rx#:[id number] Flagyl 500 MG Inj 100 ML @ 100 100 / 100 200 / 200 100 / 100 mls/hr IV.SIG Q8H [facility] Rx#: [id number] Oral 708 / 708 420 / 420 Output: Urine 1400 / 1400 2099 / 2100 Other: Date of Last Bowel Movement 08/09/18 08/09/18 # Bowel Movements 3 - Constitutional no acute distress - Routine HEENT Exam Eye: Present: PERRL ENT: Present: mucous membranes moist - Routine Neck Exam Present: supple - Routine Respiratory Exam Present: CTA bilaterally - Routine Cardiovascular Exam Present: S1, S2 - Routine Abdominal Exam Present: soft, normoactive bowel sounds - Routine Extremities Exam Present: pulses intact - Routine Skin Exam Present: dry, warm - Routine Neurological Exam Present: alert, oriented X3 Results Procedures completed during hospitalization: N/A Labs on day of discharge: Labs from last 24 hours 08/10/18 08/10/18 08/10/18 04:20 04:20 04:00 WBC 8.7 RBC 3.78 L Hgb 10.4 L Hct 30.7 L MCV 81.1 MCH 27.4 MCHC 33.8 RDW 17.2 Plt Count 322 MPV 7.1 Sodium Cancelled 143 Potassium Cancelled 3.0 L Chloride Cancelled 103 D Carbon Dioxide Cancelled 30.2 Anion Gap Cancelled 10 BUN Cancelled 9 Creatinine Cancelled 0.56 Estimated GFR Cancelled Greater than 89 Random Glucose Cancelled 85 Calcium Cancelled 7.5 L - Impressions ITS Impressions Abdomen/Pelvis CT 08/05/18 04:53 CONCLUSION: Persistent moderate severity diverticulitis of the proximal sigmoid colon. An associated partial obstruction has developed and there is new long segment colitis, especially in the transverse colon region. The new colitis is nonspecific, could be related to the partial obstruction/distention or infectious/opportunistic. No other complications have developed. Abdomen X-Ray 08/09/18 00:00 CONCLUSION: Decreasing amount of stool in the colon otherwise stable abdomen. No evidence of pathologic distention Discharge Plan - Discharge Disposition Patient Disposition: 01 Discharge Home - Discharge Condition Condition: Stable - Discharge Order Discharge Orders: Discharge Order (Routine); Ordered 08/10/18 Ordered By: Maryam Dorsey - Discharge Details Anticipated Discharge Date: 08/10/18 - Physicians Team Primary Care Provider: FranciscoJ avier Castaneda Attending Provider: Francisco Javier Castaneda Other Providers: Reyna Lyons MD
== END 2018-08-10 16:05 | disposition home or self-care (01) ==
LOC: NEPE 04:30 → NEDA 06:03 → N05 13:49 → N04 13:58 → N05 14:01 → N04 14:17
PROVIDERS: ADMIT Family Medicine; ATTEND Family Medicine